=== PATIENT | female | born 1985 | race Caucasian/White ===

== ENCOUNTER 2017-08-01 20:40 | Inpatient (IN) | payer OTHER ==
--- NOTE | 2017-08-01 20:54 | HP ---
COWS - Scale Resting Pulse: 1= [place] 81-100 Sweatin=Flushed/Facial Moisture Restless Observation: 1= Difficult to Sit Still Pupil Size: 1= Pupils >than Normal Bone or Joint Aches: 2= Severe Diffuse Aches Runny Nose/ Eye Tearin= Runny Nose/Eyes GI Upset > 30mins: 2= Nausea/Diarrhea Tremor Observation: 2= Slight Tremor Visible Yawning Observation: 1= 1-2x During Session Anxiety or Irritability: 2=Irritable/Anxious Goose Flesh Skin: 0=Smooth Skin COWS Score: 16 CIWA Score - CIWA Score Nausea/Vomitin Muscle Tremors: 3 Anxiety: 3 Agitation: 2 Paroxysmal Sweats: 2 Orientation: 0-Oriented Tacttile Disturbances: 1-Very Mild Itch/Numbness Auditory Disturbances: 2-Mild Harshness/Frighten Visual Disturbances: 2-Mild Sensitivity Headache: 2-Mild CIWA-Ar Total Score: 20 Admission ROS [facility]HS - HPI Chief Complaint: DEPENDENT ON HEROIN, COCAINE, ETOH, MARIJUANA AND STREET METHADONE Allergies/Adverse Reactions: Allergies Allergy/AdvReac Type Severity Reaction Status Date / Time Penicillins Allergy Verified 06/15/14 02:23 History of Present Illness: THE PT. IS REQUESTING ADMISSION TO THE DETOX AND REHAB. UNITS AND CAME FOR MEDICAL CLEARANCE - Ebola screening Have you traveled outside of the country in the last 21 days: No Have you had contact with anyone from an Ebola affected area: No Have you been sick,other than usual withdrawal symptoms: No Do you have a fever: No - Review of Systems Constitutional: See HPI, Loss of Appetite, Malaise, Weakness, Unintentional Wgt. Loss EENT: reports: See HPI Respiratory: reports: See HPI Cardiac: reports: See HPI, Syncope GI: reports: See HPI, Nausea, Poor Appetite, Vomiting, Abdominal cramping : reports: No Symptoms Reported, See HPI Musculoskeletal: reports: No Symptoms Reported, See HPI, Muscle Pain, Muscle Weakness Integumentary: reports: See HPI, Lesions, Sweating Neuro: reports: See HPI, Headache, Tremors, Weakness Endocrine: reports: See HPI Hematology: reports: See HPI Psychiatric: reports: Judgement Intact, Orientated x3, Anxious, Depressed Patient History - Patient Medical History Hx Anemia: No Hx Asthma: No Hx Chronic Obstructive Pulmonary Disease (COPD): No Hx Cancer: No Hx Cardiac Disorders: No Hx Congestive Heart Failure: No Hx Hypertension: No Hx Hypercholesterolemia: No Hx Pacemaker: No HX Cerebrovascular Accident: No Hx Seizures: Yes (LAST SEIZURE EPISODE IN 05/2017) Hx Dementia: No Hx Diabetes: No Hx Gastrointestinal Disorders: No Hx Liver Disease: No Hx Genitourinary Disorders: No Hx Renal Disease (ESRD): No Hx Thyroid Disease: No Hx Human Immunodeficiency Virus (HIV): No (LAST 05/18) Hx Hepatitis C: Yes Hx Suicide Attempt: No Hx Bipolar Disorder: Yes Hx Schizophrenia: No Other Medical History: ANXIETY AND PTSD DISORDERS - Patient Surgical History Past Surgical History: Yes Other Surgical History: TUBAL LIGATION 2010 - Reproductive History Patient is a Female of Child Bearing Age (11 -55 yrs old): Yes Last Menstrual Period: 07/11/17 Patient : No - Smoking Cessation Smoking history: Current every day smoker Have you smoked in the past 12 months: Yes Aproximately how many cigarettes per day: 20 Cigars Per Day: 0 Hx Chewing Tobacco Use: No Initiated information on smoking cessation: Yes 'Breaking Loose' booklet given: 08/01/17 - Substance & Tx. History Hx Alcohol Use: Yes Hx Substance Use: Yes Substance Use Type: Alcohol, Cocaine, Heroin, Marijuana, Opiates Hx Substance Use Treatment: Yes - Substances Abused Heroin Route: Injection Frequency: Daily Amount used: 10-15 B/D Age of first use: 27 Date of Last Use: 07/31/17 Alcohol Route: Oral Frequency: Daily Amount used: 1-2 P/D Age of first use: 14 Date of Last Use: 07/31/17 Cocaine Route: Smoking Frequency: 3-6 times per week Amount used: 1 GRAM/EACH TIME Age of first use: 15 Date of Last Use: 07/31/17 Marijuana/Hashish Route: Smoking Frequency: 3-6 times per week Amount used: $20/EACH TIME Age of first use: 14 Date of Last Use: 07/31/17 Non-Rx Methadone Route: Oral Frequency: 3-6 times per week Amount used: 60-100/ON ALT. DAY Age of first use: 26 Date of Last Use: 07/30/17 Family Disease History - Family Disease History Family Disease History: Other: Father (ALCOHOL,), Mother (ALCOHOL,MANIC DEPRESSIVE), Sister (DSA) Admission Physical Exam BHS - Physical General Appearance: Yes: No Apparent Distress, Appropriately Dressed, Thin, Tremorous, Sweating, Anxious HEENTM: Yes: Hearing grossly Normal, Normocephalic, Normal Voice, ELIZABETH, Pharynx Normal Respiratory: Yes: Chest Non-Tender, Lungs Clear, Normal Breath Sounds, No Respiratory Distress, No Accessory Muscle Use Neck: Yes: No masses,lesions,Nodules, Supple, Trachea in good position Breast: Yes: Breast Exam Deferred, Axillae without masses Cardiology: Yes: Regular Rhythm, S1, S2, Tachycardia Abdominal: Yes: Normal Bowel Sounds, Non Tender, Flat, Soft Back: Yes: Normal Inspection Musculoskeletal: Yes: full range of Motion, Gait Steady, Pelvis Stable, Muscle Pain, Muscle weakness Extremities: Yes: Normal Capillary Refill, Normal Range of Motion, Non-Tender, Tremors Neurological: Yes: immersion metalcleaner II-XII NML intact, Fully Oriented, Alert, Motor Strength 5/5, Normal Response Integumentary: Yes: Normal Color, Warm, Pale, Moist, Rash, Track Muhammad Lymphatic: Yes: Within Normal Limits - Addiitonal Findings: NEEDLE TRACKS ALL OVER INCLUDING THE NECK++++ - Diagnostic (1) Alcohol dependence Current Visit: Yes Status: Chronic Qualifiers: Substance use status: uncomplicated Qualified Code(s): F10.20 - Alcohol dependence, uncomplicated; F10.20 - Alcohol dependence, uncomplicated; F10.20 - Alcohol dependence, uncomplicated (2) Bipolar disorder Current Visit: Yes Status: Chronic (3) Cocaine dependence Current Visit: Yes Status: Chronic Qualifiers: Substance use status: uncomplicated Qualified Code(s): F14.20 - Cocaine dependence, uncomplicated; F14.20 - Cocaine dependence, uncomplicated; F14.20 - Cocaine dependence, uncomplicated (4) Nicotine dependence Current Visit: Yes Status: Chronic Qualifiers: Nicotine product type: cigarettes Substance use status: uncomplicated Qualified Code(s): F17.210 - Nicotine dependence, cigarettes, uncomplicated; F17.210 - Nicotine dependence, cigarettes, uncomplicated (5) Opioid dependence Current Visit: Yes Status: Chronic Qualifiers: Substance use status: uncomplicated Qualified Code(s): F11.20 - Opioid dependence, uncomplicated; F11.20 - Opioid dependence, uncomplicated; F11.20 - Opioid dependence, uncomplicated (6) Seizure Current Visit: Yes Status: Chronic (7) Weight decreased Current Visit: Yes Status: Chronic (8) Marijuana dependence Current Visit: Yes Status: Chronic (9) Anxiety disorder Current Visit: Yes Status: Chronic Qualifiers: Anxiety disorder type: generalized anxiety disorder Qualified Code(s ): F41.1 - Generalized anxiety disorder; F41.1 - Generalized anxiety disorder; F41.1 - Generalized anxiety disorder (10) PTSD (post-traumatic stress disorder) Current Visit: Yes Status: Chronic Cleared for Admission S - Detox or Rehab [facility] Level of Care: Medically Managed Detox Regimen/Protocol: Methadone/Valium BHS Breath Alcohol Content Breath Alcohol Content: 0
[2017-08-01 21:02] VITALS: BMI 20.2
[2017-08-01] MEDS ORDERED: METHADONE HCL 10 MG TABLET (FOR DETOX USE ONLY) PO ONE ×2 (21:09→23:00)
[2017-08-01] MEDS ORDERED: MAGNESIUM HYDROX 2400MG/30ML ORAL SUSPENSION 30 ML CUP PO PRN (21:09)
[2017-08-01] MEDS ORDERED: MENTHOL/PHENOL 1 EACH UD MM PRN (21:09)
[2017-08-01] MEDS ORDERED: guaiFENesin/D-METHORPHAN HB 10 ML UNIT-DOSE CUPS PO PRN (21:09)
[2017-08-01] MEDS ORDERED: LOPERAMIDE HCL 2 MG CAPSULE PO PRN (21:09)
[2017-08-01] MEDS ORDERED: MAGNESIUM CITRATE 300 ML BOTTLE PO PRN (21:09)
[2017-08-01] MEDS ORDERED: ACETAMINOPHEN 325 MG TABLET (FP) PO PRN (21:09)
[2017-08-01] MEDS ORDERED: diphenhydrAMINE HCL 50 MG CAPSULE PO PRN (21:09)
[2017-08-01] MEDS ORDERED: MAG HYDROX/AL HYDROX/SIMETH 30 ML UNIT-DOSE CUP PO PRN (21:09)
[2017-08-01] MEDS ORDERED: P-EPHED 60MG/TRIPROLIDI 2.5MG TABLET PO PRN (21:09)
[2017-08-01] MEDS ORDERED: diazePAM 5 MG TABLET PO ONE (21:09)
[2017-08-01] MEDS ORDERED: NICOTINE POLACRILEX 4 MG GUM BUC PRN (21:09)
[2017-08-01] MEDS ORDERED: IBUPROFEN 400 MG TABLET (FP) PO PRN (21:09)
[2017-08-01] MEDS: diazePAM 5 MG TABLET PO SCH (22:18)
[2017-08-01] MEDS: THIAMINE HCL 100 MG TABLET (FP) PO SCH (22:22)
[2017-08-01] MEDS: levETIRAcetam 500 MG TABLET (FP) PO ONE ×2 (23:29→23:31)
[2017-08-01] MEDS: levETIRAcetam 500 MG TABLET (FP) PO SCH (23:40)
[2017-08-02 01:12] LABS: URINE APPEARANCE CLEAR; URINE BILIRUBIN NEGATIVE (NEGATIVE); URINE BLOOD NEGATIVE (NEGATIVE); URINE COLOR YELLOW; URINE GLUCOSE (UA) NEGATIVE (NEGATIVE); URINE KETONE NEGATIVE (NEGATIVE); URINE NITRITE NEGATIVE (NEGATIVE); URINE PROTEIN NEGATIVE (NEGATIVE); URINE UROBILINOGEN NEGATIVE mg/dL (0.2-1.0)
[2017-08-02] MEDS: diazePAM 5 MG TABLET PO SCH ×3 (07:15→22:50)
--- NOTE | 2017-08-02 09:13 | EKG ---
Test Reason : Blood Pressure : / mmHG Vent. Rate : 084 BPM Atrial Rate : 084 BPM P-R Int : 150 ms QRS Dur : 064 ms QT Int : 392 ms P-R-T Axes : 028 034 008 degrees QTc Int : 463 ms NORMAL SINUS RHYTHM NONSPECIFIC T WAVE ABNORMALITY ABNORMAL ECG NO PREVIOUS ECGS AVAILABLE Confirmed by CYNDIE WARREN, MELISA ([id number]) on 08/02/2017 9:13:23 AM Referred By: Eun Wild Confirmed By:MELISA AGEE MD
[2017-08-02] MEDS ORDERED: METHADONE HCL 10 MG TABLET (FOR DETOX USE ONLY) PO SCH (10:00)
[2017-08-02] MEDS ORDERED: levETIRAcetam 500 MG TABLET (FP) PO SCH (10:00)
[2017-08-02] MEDS: PRENATAL VITAMINS W/ FOLIC ACID TABLET (FP) PO SCH (10:16)
[2017-08-02] MEDS: diazePAM 5 MG TABLET PO PRN ×2 (10:16→22:10)
[2017-08-02] MEDS: hydrOXYzine PAMOATE 25 MG CAPSULE (FP) PO PRN ×2 (10:16→18:50)
[2017-08-02] MEDS: NICOTINE 21 MG/24 HOURS TOPICAL PATCH TD SCH (10:17)
[2017-08-02] MEDS: BACITRACIN 15 GM TUBE TOPICAL OINTMENT TP SCH ×2 (11:05→22:49)
[2017-08-02] MEDS: SULFAMETHOXAZOLE/TRIMETHOPRIM 800MG/160MG D.S. TABLET PO SCH ×2 (11:05→22:10)
[2017-08-02 11:11] LABS: MCH 30.4 pg (25.7-33.7); MEAN CELL VOLUME 89.5 fl (80-96); MEAN PLT VOLUME 8.8 fl (7.5-11.1); PLATELET COUNT 456 K/MM3 (134-434); WHITE BLOOD COUNT 5.9 K/mm3 (4.0-10.0)
[2017-08-02 11:20] LABS: ANION GAP 7 (8-16); CALCIUM 8.3 mg/dL (8.5-10.1); CO2 26 mmol/L (21-32); GLUCOSE,RANDOM 81 mg/dL (74-106); SGOT/AST 31 U/L (15-37)
[2017-08-02 11:23] LABS: ALK PHOS 55 U/L (45-117); BILIRUBIN,TOTAL 0.2 mg/dL (0.2-1.0); CREATININE 0.6 mg/dL (0.55-1.02); SGPT/ALT 32 U/L (12-78); TOT PROT 6.1 g/dl (6.4-8.2)
--- NOTE | 2017-08-02 11:24 | PN ---
[facility] CIWA - CIWA Score Nausea/Vomitin Muscle Tremors: 3 Anxiety: 3 Agitation: 3 Paroxysmal Sweats: 1-Minimal Palms Moist Orientation: 0-Oriented Tacttile Disturbances: 1-Very Mild Itch/Numbness Auditory Disturbances: 1-Very Mild Visual Disturbances: 0-None Headache: 2-Mild CIWA-Ar Total Score: 17 BHS COWS - Scale Resting Pulse: 1= [place] 81-100 Sweatin= Chills/Flushing Restless Observation: 1= Difficult to Sit Still Pupil Size: 1= Pupils >than Normal Bone or Joint Aches: 2= Severe Diffuse Aches Runny Nose/ Eye Tearin= Runny Nose/Eyes GI Upset > 30mins: 2= Nausea/Diarrhea Tremor Observation of Outstretched Hands: 2= Slight Tremor Visible Yawning Observation: 1= 1-2x During Session Anxiety or Irritability: 2=Irritable/Anxious Goose Flesh Skin: 0=Smooth Skin COWS Score: 15 [facility] Progress Note (SOAP) Subjective: ALERT,IRRITABLE,ANXIOUS,INTERRUPTED SLEEP,PAIN IN THE BODY AND BACK,TREMOR Objective: 08/02/17 11:21 Vital Signs Temperature 98.0 F 08/02/17 10:00 Pulse Rate 87 08/02/17 10:00 Respiratory Rate 18 08/02/17 10:00 Blood Pressure 117/60 08/02/17 10:00 O2 Sat by Pulse Oximetry (%) EKG NSR,INVERTED T IN 3 NO CHEST PAIN,NO SOB,NO DIZZINESS MULTIPLE AREAS OF TRACK CROW BOTH FOREARMS AND LEGS WITH CELLULITIS 08/02/17 11:25 Laboratory Last Values WBC 5.9 K/mm3 (4.0-10.0) 08/02/17 07:30 RBC 3.62 M/mm3 (3.60-5.2) 08/02/17 07:30 Hgb 11.0 GM/dL (10.7-15.3) 08/02/17 07:30 Hct 32.3 % (32.4-45.2) L 08/02/17 07:30 MCV 89.5 fl (80-96) 08/02/17 07:30 MCH 30.4 pg (25.7-33.7) 08/02/17 07:30 MCHC 34.0 g/dl (32.0-36.0) 08/02/17 07:30 RDW 15.0 % (11.6-15.6) 08/02/17 07:30 Plt Count 456 K/MM3 (134-434) H 08/02/17 07:30 MPV 8.8 fl (7.5-11.1) 08/02/17 07:30 Sodium 141 mmol/L (136-145) 08/02/17 07:30 Potassium 4.0 mmol/L (3.5-5.1) 08/02/17 07:30 Chloride 108 mmol/L (98-107) H 08/02/17 07:30 Carbon Dioxide 26 mmol/L (21-32) 08/02/17 07:30 Anion Gap 7 (8-16) L 08/02/17 07:30 BUN 16 mg/dL (7-18) 08/02/17 07:30 Random Glucose 81 mg/dL (74-106) 08/02/17 07:30 Calcium 8.3 mg/dL (8.5-10.1) L 08/02/17 07:30 AST 31 U/L (15-37) 08/02/17 07:30 Albumin 3.0 g/dl (3.4-5.0) L 08/02/17 07:30 Urine Color Yellow 08/02/17 01:00 Urine Appearance Clear 08/02/17 01:00 Urine pH 6.0 (5.0-8.0) 08/02/17 01:00 Urine Protein Negative (NEGATIVE) 08/02/17 01:00 Urine Glucose (UA) Negative (NEGATIVE) 08/02/17 01:00 Urine Ketones Negative (NEGATIVE) 08/02/17 01:00 Urine Blood Negative (NEGATIVE) 08/02/17 01:00 Urine Nitrite Negative (NEGATIVE) 08/02/17 01:00 Urine Bilirubin Negative (NEGATIVE) 08/02/17 01:00 Urine Urobilinogen Negative mg/dL (0.2-1.0) 08/02/17 01:00 LABS PENDING Assessment: 08/02/17 11:24 WITHDRAWAL SYMPTOM 08/02/17 11:26 Plan: CONTINUE DETOX,BACTRIM DS 1 TAB PO BID,BACITRACIN OINTMENT,SEIZURE PRECAUTION
[2017-08-02] MEDS: levETIRAcetam 500 MG TABLET (FP) PO SCH ×2 (11:52→22:10)
[2017-08-02] MEDS ORDERED: PNEUMOC 13-VAL CONJ-DIP CRM/PF 0.5 ML DISP.SYRIN IM ONE (12:00)
[2017-08-02] MEDS ORDERED: FLU VACCINE QUAD 60 MCG/0.5 ML (MDV 17-18) IM ONE (12:00)
[2017-08-02 15:16] LABS: URINE LEUK ESTERASE Negative (NEGATIVE)
[2017-08-02] MEDS: THIAMINE HCL 100 MG TABLET (FP) PO SCH (22:10)
--- NOTE | 2017-08-03 09:37 | PN ---
[facility] COWS - Scale Resting Pulse: 1= [place] 81-100 Sweatin= Chills/Flushing Restless Observation: 3= Extraneous Movement Pupil Size: 1= Pupils >than Normal Bone or Joint Aches: 2= Severe Diffuse Aches Runny Nose/ Eye Tearin= Runny Nose/Eyes GI Upset > 30mins: 3= Vomiting/Diarrhea Tremor Observation of Outstretched Hands: 2= Slight Tremor Visible Yawning Observation: 1= 1-2x During Session Anxiety or Irritability: 2=Irritable/Anxious Goose Flesh Skin: 0=Smooth Skin COWS Score: 18 [facility] Progress Note (SOAP) Subjective: ALERT,IRRITABLE,ANXIOUS,INTERRUPTED SLEEP,TREMOR,PAIN IN THE BODY AND BACK Objective: 08/03/17 09:35 Vital Signs Temperature 98.1 F 08/03/17 06:10 Pulse Rate 84 08/03/17 06:10 Respiratory Rate 20 08/03/17 06:10 Blood Pressure 101/51 08/03/17 06:10 O2 Sat by Pulse Oximetry (%) Laboratory Last Values WBC 5.9 K/mm3 (4.0-10.0) 08/02/17 07:30 RBC 3.62 M/mm3 (3.60-5.2) 08/02/17 07:30 Hgb 11.0 GM/dL (10.7-15.3) 08/02/17 07:30 Hct 32.3 % (32.4-45.2) L 08/02/17 07:30 MCV 89.5 fl (80-96) 08/02/17 07:30 MCH 30.4 pg (25.7-33.7) 08/02/17 07:30 MCHC 34.0 g/dl (32.0-36.0) 08/02/17 07:30 RDW 15.0 % (11.6-15.6) 08/02/17 07:30 Plt Count 456 K/MM3 (134-434) H 08/02/17 07:30 MPV 8.8 fl (7.5-11.1) 08/02/17 07:30 Sodium 141 mmol/L (136-145) 08/02/17 07:30 Potassium 4.0 mmol/L (3.5-5.1) 08/02/17 07:30 Chloride 108 mmol/L (98-107) H 08/02/17 07:30 Carbon Dioxide 26 mmol/L (21-32) 08/02/17 07:30 Anion Gap 7 (8-16) L 08/02/17 07:30 BUN 16 mg/dL (7-18) 08/02/17 07:30 Creatinine 0.6 mg/dL (0.55-1.02) 08/02/17 07:30 Creat Clearance w eGFR > 60 (>60) 08/02/17 07:30 Random Glucose 81 mg/dL (74-106) 08/02/17 07:30 Calcium 8.3 mg/dL (8.5-10.1) L 08/02/17 07:30 Total Bilirubin 0.2 mg/dL (0.2-1.0) 08/02/17 07:30 AST 31 U/L (15-37) 08/02/17 07:30 ALT 32 U/L (12-78) 08/02/17 07:30 Alkaline Phosphatase 55 U/L (45-117) 08/02/17 07:30 Total Protein 6.1 g/dl (6.4-8.2) L 08/02/17 07:30 Albumin 3.0 g/dl (3.4-5.0) L 08/02/17 07:30 Urine Color Yellow 08/02/17 01:00 Urine Appearance Clear 08/02/17 01:00 Urine pH 6.0 (5.0-8.0) 08/02/17 01:00 Ur Specific [place] 1.025 (1.005-1.025) 08/02/17 01:00 Urine Protein Negative (NEGATIVE) 08/02/17 01:00 Urine Glucose (UA) Negative (NEGATIVE) 08/02/17 01:00 Urine Ketones Negative (NEGATIVE) 08/02/17 01:00 Urine Blood Negative (NEGATIVE) 08/02/17 01:00 Urine Nitrite Negative (NEGATIVE) 08/02/17 01:00 Urine Bilirubin Negative (NEGATIVE) 08/02/17 01:00 Urine Urobilinogen Negative mg/dL (0.2-1.0) 08/02/17 01:00 Ur Leukocyte Esterase Negative (NEGATIVE) 08/02/17 01:00 RPR Titer Nonreactive (NONREACTIVE) 08/02/17 07:30 Assessment: 08/03/17 09:36 WITHDRAWAL SYMPTOM Plan: CONTINUE DETOX
[2017-08-03] MEDS: BACITRACIN 15 GM TUBE TOPICAL OINTMENT TP SCH ×2 (10:14→22:15)
[2017-08-03] MEDS: SULFAMETHOXAZOLE/TRIMETHOPRIM 800MG/160MG D.S. TABLET PO SCH ×2 (10:18→22:15)
[2017-08-03] MEDS: METHADONE HCL 5 MG TABLET (FOR DETOX USE ONLY) PO SCH (10:18)
[2017-08-03] MEDS: diazePAM 5 MG TABLET PO SCH ×2 (10:18→22:15)
[2017-08-03] MEDS: levETIRAcetam 500 MG TABLET (FP) PO SCH ×2 (10:18→22:15)
[2017-08-03] MEDS: PRENATAL VITAMINS W/ FOLIC ACID TABLET (FP) PO SCH (10:18)
[2017-08-03] MEDS ORDERED: BACITRACIN 0.9 GM PACKET ONE (10:18)
[2017-08-03] MEDS: NICOTINE 21 MG/24 HOURS TOPICAL PATCH TD SCH (10:19)
--- NOTE | 2017-08-03 10:53 | CONSULT ---
[facility] Psychiatric Consult - Data Date of interview: 08/03/17 Admission source: [facility] Identifying data: This is 31 years old female with history of Bipolar disoprder , PTSD, with no history of psychiatric hospitalizations, intoxicated with: Alcohol, Cocaine, Nicotine, Cannabis, Methadone and Xanax Substance Abuse History: - Smoking Cessation. Smoking history: Current every day smoker. Have you smoked in the past 12 months: Yes. Aproximately how many cigarettes per day: 20. Cigars Per Day: 0. Hx Chewing Tobacco Use: No. Initiated information on smoking cessation: Yes. 'Breaking Loose' booklet given : 08/01/17. - Substance & Tx. History. Hx Alcohol Use: Yes. Hx Substance Use : Yes. Substance Use Type: Alcohol, Cocaine, Heroin, Marijuana, Opiates. Hx Substance Use Treatment: Yes. - Substances Abused. Heroin. Route: Injection. Frequency: Daily. Amount used: 10-15 B/D. Age of first use: 27. Date of Last Use: 07/31/17. Alcohol. Route: Oral. Frequency: Daily. Amount used: 1-2 P/D. Age of first use: 14. Date of Last Use: 07/31/17. Cocaine. Route: Smoking. Frequency: 3-6 times per week. Amount used: 1 GRAM/ EACH TIME. Age of first use: 15. Date of Last Use: 07/31/17. Marijuana/ Hashish. Route: Smoking. Frequency: 3-6 times per week. Amount used: $20/ EACH TIME. Age of first use: 14. Date of Last Use: 07/31/17. Non-Rx Methadone. Route: Oral. Frequency: 3-6 times per week. Amount used: 60-100/ ON ALT. DAY. Age of first use: 26. Date of Last Use: 07/30/17 Medical History: Weight loss, Syncope Psychiatric History: Patioent reports history of Bipolar disorder, reports taking prior to admission: Seroquel 300mg po bid. Trazodone 150mg po qhs. Patoient insisit on starting immedicately Seroquel 600mg po bid, reports never been oversedated prior and reports taking this amount for a long time ago. Physical/Sexual Abuse/Trauma History: Denies Additional Comment: Seroquel 300mg po bid. Trazodone 150mg po qhs Mental Status Exam - Mental Status Exam Alert and Oriented to: Person Cognitive Function: Fair Patient Appearance: Unkempt Mood: Anxious Affect: Mood Congruent Patient Behavior: Guarded, Cooperative Speech Pattern: Appropriate Voice Loudness: Mildly Soft/Quiet Thought Process: Goal Oriented Thought Disorder: Being Controlled Hallucinations: Denies Suicidal Ideation: Denies Homicidal Ideation: Denies Insight/Judgement: Fair Sleep: Difficulty falling asleep Appetite: Weight loss Muscle strength/Tone: Normal Gait/Station: Normal Additional Comments: Seroquel 300mg po bid. Trazodone 150mg po qhs Psychiatric Findings - Problem List ([place] 1, 2,3) (1) Alcohol dependence Current Visit: Yes Status: Chronic Qualifiers: Substance use status: uncomplicated Qualified Code(s): F10.20 - Alcohol dependence, uncomplicated; F10.20 - Alcohol dependence, uncomplicated; F10.20 - Alcohol dependence, uncomplicated (2) Bipolar disorder Current Visit: Yes Status: Chronic (3) Cocaine dependence Current Visit: Yes Status: Chronic Qualifiers: Substance use status: uncomplicated Qualified Code(s): F14.20 - Cocaine dependence, uncomplicated; F14.20 - Cocaine dependence, uncomplicated; F14.20 - Cocaine dependence, uncomplicated (4) Marijuana dependence Current Visit: Yes Status: Chronic (5) Nicotine dependence Current Visit: Yes Status: Chronic Qualifiers: Nicotine product type: cigarettes Substance use status: uncomplicated Qualified Code(s): F17.210 - Nicotine dependence, cigarettes, uncomplicated; F17.210 - Nicotine dependence, cigarettes, uncomplicated (6) Opioid dependence Current Visit: Yes Status: Chronic Qualifiers: Substance use status: uncomplicated Qualified Code(s): F11.20 - Opioid dependence, uncomplicated; F11.20 - Opioid dependence, uncomplicated; F11.20 - Opioid dependence, uncomplicated (7) PTSD (post-traumatic stress disorder) Current Visit: Yes Status: Chronic (8) Weight decreased Current Visit: Yes Status: Chronic (9) Benzodiazepine dependence Current Visit: No Status: Acute - Initial Treatment Plan Initial Treatment Plan: Seroquel 300mg po bid. Trazodone 150mg po qhs
[2017-08-03] MEDS: QUEtiapine FUMARATE 300 MG TABLET PO SCH ×2 (13:21→22:15)
[2017-08-03] MEDS: THIAMINE HCL 100 MG TABLET (FP) PO SCH (22:15)
[2017-08-03] MEDS: traZODone HCL 50 MG TABLET (FP) PO SCH (22:15)
[2017-08-04] MEDS ORDERED: BACITRACIN 0.9 GM PACKET ONE (09:11)
--- NOTE | 2017-08-04 09:19 | PN ---
[facility] Progress Note (SOAP) Subjective: ALERT,IRRITABLE,ANXIOUS,INTERRUPTED SLEEP,PAIN IN THE BODY Objective: 08/04/17 09:19 Vital Signs Temperature 99.1 F 08/04/17 06:00 Pulse Rate 91 H 08/04/17 06:00 Respiratory Rate 18 08/04/17 06:00 Blood Pressure 103/55 08/04/17 06:00 O2 Sat by Pulse Oximetry (%) Assessment: 08/04/17 09:19 WITHDRAWAL SYMPTOM Plan: CONTINUE DETOX
[2017-08-04] MEDS: QUEtiapine FUMARATE 300 MG TABLET PO SCH ×2 (10:18→22:14)
[2017-08-04] MEDS: diazePAM 5 MG TABLET PO SCH ×2 (10:18→22:16)
[2017-08-04] MEDS: PRENATAL VITAMINS W/ FOLIC ACID TABLET (FP) PO SCH (10:19)
[2017-08-04] MEDS: levETIRAcetam 500 MG TABLET (FP) PO SCH ×2 (10:20→22:14)
[2017-08-04] MEDS: BACITRACIN 15 GM TUBE TOPICAL OINTMENT TP SCH ×2 (10:20→22:31)
[2017-08-04] MEDS: SULFAMETHOXAZOLE/TRIMETHOPRIM 800MG/160MG D.S. TABLET PO SCH ×2 (10:20→22:14)
[2017-08-04] MEDS: METHADONE HCL 5 MG TABLET (FOR DETOX USE ONLY) PO SCH (10:20)
[2017-08-04] MEDS: NICOTINE 21 MG/24 HOURS TOPICAL PATCH TD SCH (10:23)
[2017-08-04] MEDS: traZODone HCL 50 MG TABLET (FP) PO SCH (22:13)
[2017-08-04] MEDS: THIAMINE HCL 100 MG TABLET (FP) PO SCH (22:14)
--- NOTE | 2017-08-05 08:55 | PN ---
[facility] Progress Note (SOAP) Subjective: nausea, sweats, interrupted sleep,anxiety, tremors Objective: 08/05/17 08:54 Vital Signs - 8 hr 08/05/17 08/05/17 03:30 06:00 Temperature 96.4 F L Pulse Rate 110 H Respiratory 18 16 Rate Blood Pressure 112/69 Laboratory Tests 08/02/17 08/02/17 08/02/17 01:00 07:30 07:30 WBC 5.9 RBC 3.62 Hgb 11.0 Hct 32.3 L MCV 89.5 MCH 30.4 MCHC 34.0 RDW 15.0 Plt Count 456 H MPV 8.8 Sodium 141 Potassium 4.0 Chloride 108 H Carbon Dioxide 26 Anion Gap 7 L BUN 16 Creatinine 0.6 Creat Clearance w eGFR > 60 Random Glucose 81 Calcium 8.3 L Total Bilirubin 0.2 AST 31 ALT 32 Alkaline Phosphatase 55 Total Protein 6.1 L Albumin 3.0 L Urine Color Yellow Urine Appearance Clear Urine pH 6.0 Ur Specific [place] 1.025 Urine Protein Negative Urine Glucose (UA) Negative Urine Ketones Negative Urine Blood Negative Urine Nitrite Negative Urine Bilirubin Negative Urine Urobilinogen Negative Ur Leukocyte Esterase Negative RPR Titer 08/02/17 07:30 WBC RBC Hgb Hct MCV MCH MCHC RDW Plt Count MPV Sodium Potassium Chloride Carbon Dioxide Anion Gap BUN Creatinine Creat Clearance w eGFR Random Glucose Calcium Total Bilirubin AST ALT Alkaline Phosphatase Total Protein Albumin Urine Color Urine Appearance Urine pH Ur Specific [place] Urine Protein Urine Glucose (UA) Urine Ketones Urine Blood Urine Nitrite Urine Bilirubin Urine Urobilinogen Ur Leukocyte Esterase RPR Titer Nonreactive Assessment: 08/05/17 08:55 hypoalbuminemia, malnutrition 2/2 substance use/liver disease, tachycardai withdrawal sx Plan: cont detox, clonidine
[2017-08-05] MEDS ORDERED: diazePAM 5 MG TABLET PO SCH (10:00)
[2017-08-05] MEDS ORDERED: METHADONE HCL 10 MG TABLET (FOR DETOX USE ONLY) PO SCH (10:00)
[2017-08-05] MEDS: BACITRACIN 15 GM TUBE TOPICAL OINTMENT TP SCH ×2 (10:07→22:06)
[2017-08-05] MEDS: cloNIDine HCL 0.1 MG TABLET PO SCH ×2 (10:08→22:06)
[2017-08-05] MEDS: SULFAMETHOXAZOLE/TRIMETHOPRIM 800MG/160MG D.S. TABLET PO SCH ×2 (10:08→22:06)
[2017-08-05] MEDS: NICOTINE 21 MG/24 HOURS TOPICAL PATCH TD SCH (10:08)
[2017-08-05] MEDS: PRENATAL VITAMINS W/ FOLIC ACID TABLET (FP) PO SCH (10:09)
[2017-08-05] MEDS: QUEtiapine FUMARATE 300 MG TABLET PO SCH ×2 (10:09→22:05)
[2017-08-05] MEDS: levETIRAcetam 500 MG TABLET (FP) PO SCH ×2 (10:09→22:05)
[2017-08-05] MEDS: THIAMINE HCL 100 MG TABLET (FP) PO SCH (22:05)
[2017-08-05] MEDS: traZODone HCL 50 MG TABLET (FP) PO SCH (22:05)
[2017-08-06] MEDS ORDERED: METHADONE HCL 5 MG TABLET (FOR DETOX USE ONLY) PO SCH (06:00)
[2017-08-06 06:34] VITALS: BP 104/50; PULSE 93; TEMP 97.7
--- NOTE | 2017-08-06 08:14 | PN ---
S Progress Note (SOAP) Subjective: alert,no complaint Objective: 08/06/17 08:12 Vital Signs Temperature 97.7 F 08/06/17 06:33 Pulse Rate 93 H 08/06/17 06:33 Respiratory Rate 20 08/06/17 06:33 Blood Pressure 104/50 08/06/17 06:33 O2 Sat by Pulse Oximetry (%) detox completed,no withdrawal symptom Assessment: 08/06/17 08:13 no withdrawal symptom Plan: discharge today,follow up with after care program as arrangement
--- NOTE | 2017-08-06 08:16 | DS ---
[facility] Detox Discharge Summary Admission Date: 08/01/17 Discharge Date: 08/06/17 - History Present History: Alcohol Dependence, Cannabis Dependence, Cocaine Dependence, Opioid Dependence Additional Comments: follow up with after care program as arrangement Pertinent Past History: nicotine dependence seizure anxiety and depression ptsd - Physical Exam Results Vital Signs: Vital Signs Temperature 97.7 F 08/06/17 06:33 Pulse Rate 93 H 08/06/17 06:33 Respiratory Rate 20 08/06/17 06:33 Blood Pressure 104/50 08/06/17 06:33 O2 Sat by Pulse Oximetry (%) Pertinent Admission Physical Exam Findings: withdrawal symptom - Treatment Hospital Course: Detox Protocol Followed, Detoxed Safely, Responded well, Discharged Condition Good, Rehab Referral Accepted Patient has Accepted [facility] Referral [facility] - Medication Discharge Medications: Ambulatory Orders Quetiapine Fumarate [Seroquel -] 300 mg PO BID 08/01/17 Trazodone HCl [Desyrel -] 150 mg PO HS 08/01/17 Quetiapine Fumarate [Seroquel -] 300 mg PO BID #60 tab 08/03/17 Trazodone HCl [Desyrel -] 150 mg PO HS #30 tablet 08/03/17 Hydroxyzine Pamoate [Vistaril -] 25 mg PO Q4H PRN #20 cap 08/05/17 Levetiracetam [Keppra -] 500 mg PO BID #60 tab 08/05/17 Sulfamethoxazole/Trimethoprim [Bactrim DS -] 1 each PO BID #14 tablet 08/05/17 - Diagnosis (1) Opioid dependence with withdrawal Current Visit: Yes Status: Acute (2) Opioid dependence Current Visit: Yes Status: Chronic Qualifiers: Substance use status: uncomplicated Qualified Code(s): F11.20 - Opioid dependence, uncomplicated; F11.20 - Opioid dependence, uncomplicated; F11.20 - Opioid dependence, uncomplicated (3) Cocaine dependence Current Visit: Yes Status: Chronic Qualifiers: Substance use status: uncomplicated Qualified Code(s): F14.20 - Cocaine dependence, uncomplicated; F14.20 - Cocaine dependence, uncomplicated; F14.20 - Cocaine dependence, uncomplicated (4) Marijuana dependence Current Visit: Yes Status: Chronic (5) Weight decreased Current Visit: Yes Status: Chronic (6) Alcohol dependence with uncomplicated withdrawal Current Visit: Yes Status: Acute (7) Seizure Current Visit: Yes Status: Chronic (8) Syncope Current Visit: No Status: Acute (9) Cellulitis and abscess of leg Current Visit: Yes Status: Acute - AMA Did Patient Leave Against Medical Advice: No
[2017-08-06] MEDS: levETIRAcetam 500 MG TABLET (FP) PO SCH (09:07)
[2017-08-06] MEDS: PRENATAL VITAMINS W/ FOLIC ACID TABLET (FP) PO SCH (09:07)
[2017-08-06] MEDS: SULFAMETHOXAZOLE/TRIMETHOPRIM 800MG/160MG D.S. TABLET PO SCH (09:07)
[2017-08-06] MEDS: QUEtiapine FUMARATE 300 MG TABLET PO SCH (09:09)
== END 2017-08-06 09:13 | disposition home or self-care (01) | DRG 773 ==
LOC: YASAS 20:40 → Y6N 20:58
PROVIDERS: ADMIT Internal Medicine; ATTEND Internal Medicine
PROC: HZ2ZZZZ Detoxification Services for Substance Abuse Treatment (ICD-10-PCS; principal; 2017-08-01)
DX: F11.23 Opioid dependence with withdrawal (principal); F10.230 Alcohol dependence with withdrawal, uncomplicated; F14.20 Cocaine dependence, uncomplicated; F12.20 Cannabis dependence, uncomplicated; F41.8 Other specified anxiety disorders; F31.9 Bipolar disorder, unspecified; G40.909 Epilepsy, unspecified, not intractable, without status epilepticus; L03.119 Cellulitis of unspecified part of limb; R63.4 Abnormal weight loss; Z68.20 Body mass index [BMI] 20.0-20.9, adult
CPT/HCPCS: 36415; 80053; 81003; 85027; 86593; 90670; 90688; 93005; 93010; G0008; G0009

== ENCOUNTER 2017-08-26 15:53 | Inpatient (IN) | payer OTHER ==
[2017-08-26 16:16] VITALS: BMI 21.4
--- NOTE | 2017-08-26 19:39 | HP ---
COWS - Scale Resting Pulse: 1= [place] 81-100 Sweatin= Chills/Flushing Restless Observation: 3= Extraneous Movement Pupil Size: 0= Normal to Room Light Bone or Joint Aches: 2= Severe Diffuse Aches Runny Nose/ Eye Tearin= Runny Nose/Eyes GI Upset > 30mins: 1= Stomach Cramp Tremor Observation: 2= Slight Tremor Visible Yawning Observation: 0= None Anxiety or Irritability: 2=Irritable/Anxious Goose Flesh Skin: 0=Smooth Skin COWS Score: 14 CIWA Score - CIWA Score Nausea/Vomitin-No Nausea/No Vomiting Muscle Tremors: 4-Moderate,w/Arms Extend Anxiety: 4-Mod. Anxious/Guarded Agitation: 4-Moderately Restless Paroxysmal Sweats: 1-Minimal Palms Moist Orientation: 0-Oriented Tacttile Disturbances: 0-None Auditory Disturbances: 0-None Visual Disturbances: 0-None Headache: 1-Very Mild CIWA-Ar Total Score: 14 Admission ROS S - HPI Chief Complaint: withdrawal sx Allergies/Adverse Reactions: Allergies Allergy/AdvReac Type Severity Reaction Status Date / Time Penicillins Allergy Verified 06/15/14 02:23 History of Present Illness: 31 years old female with long history of alcohol heroin nicotine dependence has seizure and anxiety depression is admitted to detox Exam Limitations: No Limitations - Ebola screening Have you traveled outside of the country in the last 21 days: No Have you had contact with anyone from an Ebola affected area: No Have you been sick,other than usual withdrawal symptoms: No Do you have a fever: No - Review of Systems Constitutional: Changes in sleep, Weight Stable EENT: reports: No Symptoms Reported Respiratory: reports: SOB with Exertion, Productive cough (brownish) Cardiac: reports: No Symptoms Reported GI: reports: Poor Fluid Intake, Indigestion, Abdominal cramping : reports: No Symptoms Reported Musculoskeletal: reports: Back Pain, Joint Pain, Muscle Pain, Neck Pain Integumentary: reports: Change in Color (multiple skin abrasion arms + legs face ) Neuro: reports: Seizure (since ), Tremors Endocrine: reports: No Symptoms Reported Hematology: reports: No Symptoms Reported Psychiatric: reports: Judgement Intact, Orientated x3, Anxious, Depressed Other Systems: Reviewed and Negative Patient History - Patient Medical History Hx Anemia: No Hx Asthma: No Hx Chronic Obstructive Pulmonary Disease (COPD): No Hx Cancer: No Hx Cardiac Disorders: No Hx Congestive Heart Failure: No Hx Hypertension: No Hx Hypercholesterolemia: No Hx Pacemaker: No HX Cerebrovascular Accident: No Hx Seizures: Yes Hx Dementia: No Hx Diabetes: No Hx Gastrointestinal Disorders: No Hx Liver Disease: No Hx Genitourinary Disorders: No Hx Sexually Transmitted Disorders: No Hx Renal Disease (ESRD): No Hx Thyroid Disease: No Hx Human Immunodeficiency Virus (HIV): No (LAST 05/18) Hx Hepatitis C: Yes Hx Depression: No Hx Suicide Attempt: No Hx Bipolar Disorder: Yes Hx Schizophrenia: No - Patient Surgical History Past Surgical History: Yes Hx Neurologic Surgery: No Hx Cataract Extraction: No Hx Cardiac Surgery: No Hx Lung Surgery: No Hx Breast Surgery: No Hx Breast Biopsy: No Hx Abdominal Surgery: No Hx Appendectomy: No Hx Cholecystectomy: No Hx Genitourinary Surgery: No Hx Section: No Hx Orthopedic Surgery: No Hx Hysterectomy: No Other Surgical History: TUBAL LIGATION 2010 Anesthesia Reaction: No - PPD History Previous Implant?: Yes Documented Results: Negative w/proof Implanted On Prior [facility] Admission?: Yes Date: 08/03/17 PPD to be Administered?: No - Reproductive History Patient is a Female of Child Bearing Age (11 -55 yrs old): Yes Last Menstrual Period: 08/12/17 Patient : No - Smoking Cessation Smoking history: Current every day smoker Have you smoked in the past 12 months: Yes Aproximately how many cigarettes per day: 20 Cigars Per Day: 0 Hx Chewing Tobacco Use: No Initiated information on smoking cessation: Yes 'Breaking Loose' booklet given: 08/26/17 - Substance & Tx. History Hx Alcohol Use: Yes Hx Substance Use: Yes Substance Use Type: Cocaine, Heroin Hx Substance Use Treatment: Yes (08/2017 [facility]) - Substances Abused Heroin Route: Injection Frequency: Daily Amount used: 10-15 bags Age of first use: 24 Date of Last Use: 08/25/17 Cocaine Route: Smoking Frequency: 3-6 times per week Amount used: $50 Age of first use: 15 Date of Last Use: 08/25/17 ETOH Route: Oral Frequency: 3-6 times per week Amount used: 1 pt vodka Age of first use: 13 Date of Last Use: 08/25/17 Family Disease History - Family Disease History Family Disease History: Other: Father (ALCOHOL,), Mother (ALCOHOL,MANIC DEPRESSIVE), Sister (DSA) Admission Physical Exam S - Vital Signs Vital Signs: Vital Signs - 24 hr 08/26/17 16:11 Temperature 98 F Pulse Rate 100 H Respiratory 18 Rate Blood Pressure 127/77 - Physical General Appearance: Yes: Appropriately Dressed, Mild Distress, Thin, Tremorous, Irritable, Sweating, Anxious HEENTM: Yes: Hearing grossly Normal, Normal ENT Inspection, Normocephalic, Normal Voice Respiratory: Yes: Chest Non-Tender, No Respiratory Distress, No Accessory Muscle Use, Rhonchi, Hyperresonant, Inspiration Neck: Yes: Supple, Trachea in good position Breast: Yes: Breasts Symetrical Cardiology: Yes: Regular Rhythm, S1, S2, Tachycardia Abdominal: Yes: Non Tender, Soft, Increased Bowel Sounds Genitourinary: Yes: Within Normal Limits Back: Yes: Normal Inspection Musculoskeletal: Yes: full range of Motion, Gait Steady, Back pain, Muscle Pain Extremities: Yes: Normal Range of Motion, Non-Tender, Tremors Neurological: Yes: Fully Oriented, Alert, Motor Strength 5/5, Normal Response, Depressed Affect Integumentary: Yes: Warm, Erythema, Other (multiple skin abrasion) Lymphatic: Yes: Within Normal Limits - Diagnostic (1) GERD (gastroesophageal reflux disease) Current Visit: Yes Status: Chronic Qualifiers: Esophagitis presence: without esophagitis Qualified Code(s): K21.9 - Gastro -esophageal reflux disease without esophagitis (2) COPD (chronic obstructive pulmonary disease) Current Visit: Yes Status: Chronic Qualifiers: COPD type: emphysema Emphysema type: panlobular Qualified Code(s): J43.1 - Panlobular emphysema (3) Bipolar II disorder Current Visit: Yes Status: Suspected (4) Hepatitis C Current Visit: Yes Status: Chronic Qualifiers: Viral hepatitis chronicity: unspecified Hepatic coma status: without hepatic coma Qualified Code(s): B19.20 - Unspecified viral hepatitis C without hepatic coma Comment: [place]el to treat (5) Skin abrasion Current Visit: Yes Status: Chronic (6) Alcohol dependence with uncomplicated withdrawal Current Visit: Yes Status: Acute (7) Anxiety and depression Current Visit: Yes Status: Suspected (8) Opioid dependence with withdrawal Current Visit: Yes Status: Acute (9) Nicotine dependence Current Visit: Yes Status: Acute Qualifiers: Nicotine product type: cigarettes Substance use status: in withdrawal Qualified Code(s): F17.213 - Nicotine dependence, cigarettes, with withdrawal (10) Seizure Current Visit: Yes Status: Chronic Qualifiers: Convulsion type: simple febrile Qualified Code(s): R56.00 - Simple febrile convulsions (11) Weight decreased Current Visit: Yes Status: Acute Cleared for Admission S - Detox or Rehab [facility] Level of Care: Medically Managed Detox Regimen/Protocol: Methadone/Librium S Breath Alcohol Content Breath Alcohol Content: 0 Urine Pregancy Test - Result Urine Test Results: Negative- NO Line Present Urine Drug Screen - Results Drug Screen Negative: No Urine Drug Screen Results: RITO-Cocaine, OPI-Opiates, MTD-Methadone
[2017-08-26] MEDS ORDERED: NICOTINE POLACRILEX 4 MG GUM BC PRN (19:43)
[2017-08-26] MEDS ORDERED: ACETAMINOPHEN 325 MG TABLET (FP) PO PRN (19:43)
[2017-08-26] MEDS ORDERED: MAGNESIUM HYDROX 2400MG/30ML ORAL SUSPENSION 30 ML CUP PO PRN (19:43)
[2017-08-26] MEDS ORDERED: P-EPHED 60MG/TRIPROLIDI 2.5MG TABLET PO PRN (19:43)
[2017-08-26] MEDS ORDERED: MAG HYDROX/AL HYDROX/SIMETH 30 ML UNIT-DOSE CUP PO PRN (19:43)
[2017-08-26] MEDS ORDERED: LOPERAMIDE HCL 2 MG CAPSULE PO PRN (19:43)
[2017-08-26] MEDS ORDERED: guaiFENesin/D-METHORPHAN HB 10 ML UNIT-DOSE CUPS PO PRN (19:43)
[2017-08-26] MEDS ORDERED: MAGNESIUM CITRATE 300 ML BOTTLE PO PRN (19:43)
[2017-08-26] MEDS ORDERED: diazePAM 5 MG TABLET PO PRN ×2 (19:43→19:54)
[2017-08-26] MEDS ORDERED: diazePAM 5 MG TABLET PO ONE (19:43)
[2017-08-26] MEDS ORDERED: MENTHOL/PHENOL 1 EACH UD MM PRN (19:43)
[2017-08-26] MEDS ORDERED: ALBUTEROL SO4 18 GM HFA INHALER IH PRN (19:46)
[2017-08-26] MEDS ORDERED: METHADONE HCL 10 MG TABLET (FOR DETOX USE ONLY) PO ONE ×2 (19:54→23:00)
[2017-08-26] MEDS: SULFAMETHOXAZOLE/TRIMETHOPRIM 800MG/160MG D.S. TABLET PO SCH ×2 (20:19→22:31)
[2017-08-26] MEDS: RANITIDINE HCL 150 MG TABLET (FP) PO SCH ×2 (20:19→22:32)
[2017-08-26] MEDS: TRIAMCINOLONE ACET 0.1% OINT 15 GM TUBE TP SCH ×2 (21:16→22:31)
[2017-08-26] MEDS ORDERED: THIAMINE HCL 100 MG TABLET (FP) PO SCH (22:00)
[2017-08-26] MEDS: levETIRAcetam 500 MG TABLET (FP) PO SCH (22:30)
[2017-08-26] MEDS: diazePAM 5 MG TABLET PO SCH (22:31)
[2017-08-27 02:25] LABS: URINE APPEARANCE CLEAR; URINE BILIRUBIN NEGATIVE (NEGATIVE); URINE BLOOD NEGATIVE (NEGATIVE); URINE COLOR YELLOW; URINE GLUCOSE (UA) NEGATIVE (NEGATIVE); URINE KETONE NEGATIVE (NEGATIVE); URINE NITRITE NEGATIVE (NEGATIVE); URINE PROTEIN NEGATIVE (NEGATIVE); URINE UROBILINOGEN 0.2 mg/dL (0.2-1.0)
[2017-08-27] MEDS: diazePAM 5 MG TABLET PO SCH ×2 (05:51→14:34)
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
[2017-08-27] MEDS ORDERED: NICOTINE 21 MG/24 HOURS TOPICAL PATCH TD SCH (10:00)
[2017-08-27] MEDS ORDERED: METHADONE HCL 10 MG TABLET (FOR DETOX USE ONLY) PO ONE (10:00)
[2017-08-27] MEDS ORDERED: PRENATAL VITAMINS W/ FOLIC ACID TABLET (FP) PO SCH (10:00)
[2017-08-27 10:10] LABS: MCH 30.5 pg (25.7-33.7); MEAN CELL VOLUME 92.3 fl (80-96); MEAN PLT VOLUME 8.6 fl (7.5-11.1); PLATELET COUNT 541 K/MM3 (134-434); RDW 14.9 % (11.6-15.6); WHITE BLOOD COUNT 8.4 K/mm3 (4.0-10.0)
[2017-08-27] MEDS: SULFAMETHOXAZOLE/TRIMETHOPRIM 800MG/160MG D.S. TABLET PO SCH (10:26)
[2017-08-27] MEDS: RANITIDINE HCL 150 MG TABLET (FP) PO SCH (10:27)
[2017-08-27] MEDS: levETIRAcetam 500 MG TABLET (FP) PO SCH (10:27)
[2017-08-27] MEDS: TRIAMCINOLONE ACET 0.1% OINT 15 GM TUBE TP SCH ×2 (10:27→14:34)
[2017-08-27] MEDS ORDERED: traZODone HCL 100 MG TABLET (FP) PO SCH (10:30)
[2017-08-27] MEDS ORDERED: QUEtiapine FUMARATE 300 MG TABLET PO SCH (10:30)
[2017-08-27 10:52] LABS: ALBUMIN 3.7 g/dl (3.4-5.0); ALK PHOS 76 U/L (45-117); ANION GAP 8 (8-16); BILIRUBIN,TOTAL 0.6 mg/dL (0.2-1.0); CO2 26 mmol/L (21-32); CREATININE 0.9 mg/dL (0.55-1.02); GLUCOSE,RANDOM 102 mg/dL (74-106); SGOT/AST 35 U/L (15-37); SGPT/ALT 61 U/L (12-78); TOT PROT 6.9 g/dl (6.4-8.2)
[2017-08-27 11:34] LABS: URINE LEUK ESTERASE Negative (NEGATIVE)
--- NOTE | 2017-08-27 12:46 | PN ---
[facility] CIWA - CIWA Score Nausea/Vomitin-No Nausea/No Vomiting Muscle Tremors: 4-Moderate,w/Arms Extend Anxiety: 4-Mod. Anxious/Guarded Agitation: 4-Moderately Restless Paroxysmal Sweats: 3 Orientation: 0-Oriented Tacttile Disturbances: 0-None Auditory Disturbances: 0-None Visual Disturbances: 0-None Headache: 0-None Present CIWA-Ar Total Score: 15 [facility] COWS - Scale Resting Pulse: 2= [place] 101-120 Sweatin=Flushed/Facial Moisture Restless Observation: 1= Difficult to Sit Still Pupil Size: 0= Normal to Room Light Bone or Joint Aches: 2= Severe Diffuse Aches Runny Nose/ Eye Tearin= Runny Nose/Eyes GI Upset > 30mins: 1= Stomach Cramp Tremor Observation of Outstretched Hands: 2= Slight Tremor Visible Yawning Observation: 2= >3x During Session Anxiety or Irritability: 2=Irritable/Anxious Goose Flesh Skin: 0=Smooth Skin COWS Score: 16 S Progress Note (SOAP) Subjective: hot and sweats chills body aches restless interrupted sleep agitation Objective: 08/27/17 12:46 Vital Signs Temperature 99.0 F 08/27/17 09:55 Pulse Rate 105 H 08/27/17 09:55 Respiratory Rate 16 08/27/17 09:55 Blood Pressure 100/76 08/27/17 09:55 O2 Sat by Pulse Oximetry (%) Laboratory Tests 08/26/17 08/27/17 08/27/17 22:50 07:40 07:40 WBC 8.4 D RBC 4.28 Hgb 13.1 D Hct 39.5 D MCV 92.3 MCH 30.5 MCHC 33.0 RDW 14.9 Plt Count 541 H MPV 8.6 Sodium 138 Potassium 4.5 Chloride 104 Carbon Dioxide 26 Anion Gap 8 BUN 16 Creatinine 0.9 D Creat Clearance w eGFR > 60 Random Glucose 102 D Calcium 9.0 Total Bilirubin 0.6 D AST 35 ALT 61 D Alkaline Phosphatase 76 D Total Protein 6.9 Albumin 3.7 D Urine Color Yellow Urine Appearance Clear Urine pH 5.0 Ur Specific [place] >= 1.030 Urine Protein Negative Urine Glucose (UA) Negative Urine Ketones Negative Urine Blood Negative Urine Nitrite Negative Urine Bilirubin Negative Urine Urobilinogen 0.2 Ur Leukocyte Esterase Negative RPR Titer 08/27/17 07:40 WBC RBC Hgb Hct MCV MCH MCHC RDW Plt Count MPV Sodium Potassium Chloride Carbon Dioxide Anion Gap BUN Creatinine Creat Clearance w eGFR Random Glucose Calcium Total Bilirubin AST ALT Alkaline Phosphatase Total Protein Albumin Urine Color Urine Appearance Urine pH Ur Specific [place] Urine Protein Urine Glucose (UA) Urine Ketones Urine Blood Urine Nitrite Urine Bilirubin Urine Urobilinogen Ur Leukocyte Esterase RPR Titer Nonreactive aaox3 ambulating no acute distress Assessment: 08/27/17 12:46 withdrawal sx Plan: continue detox increase fluids
[2017-08-27 14:06] VITALS: BP 111/52; TEMP 98.2
--- NOTE | 2017-08-27 14:40 | PN ---
[facility] Progress Note Note: there was pills found on her person. the pills with 6 400mg of neurontin. pt was escorted off the unit by security. pt was AAOx3 no s/s withdrawals noted. belonging were given to patient.
--- NOTE | 2017-08-27 14:41 | DS ---
[facility] Detox Discharge Summary Admission Date: 08/26/17 - History Present History: Alcohol Dependence, Opioid Dependence - Physical Exam Results Vital Signs: Vital Signs Temperature 98.2 F 08/27/17 14:05 Pulse Rate 140 H 08/27/17 14:05 Respiratory Rate 18 08/27/17 14:05 Blood Pressure 111/52 08/27/17 14:05 O2 Sat by Pulse Oximetry (%) - Treatment Hospital Course: Responded well, Discharged Condition Good - Medication Discharge Medications: Ambulatory Orders Levetiracetam [Keppra -] 500 mg PO BID 08/26/17 Quetiapine Fumarate [Seroquel -] 300 mg PO BID 08/26/17 Trazodone HCl [Desyrel -] 150 mg PO HS 08/26/17 - Diagnosis (1) Alcohol dependence with uncomplicated withdrawal Current Visit: Yes Status: Chronic (2) Cocaine dependence Current Visit: Yes Status: Chronic Qualifiers: Substance use status: uncomplicated Qualified Code(s): F14.20 - Cocaine dependence, uncomplicated (3) Nicotine dependence Current Visit: Yes Status: Chronic Qualifiers: Nicotine product type: cigarettes Substance use status: uncomplicated Qualified Code(s): F17.210 - Nicotine dependence, cigarettes, uncomplicated (4) Opioid dependence with withdrawal Current Visit: Yes Status: Chronic - AMA Did Patient Leave Against Medical Advice: No (did not comply with unit rules)
[2017-08-27 16:07] VITALS: PULSE 98
--- NOTE | 2017-08-27 22:34 | EKG ---
Test Reason : Blood Pressure : / mmHG Vent. Rate : 100 BPM Atrial Rate : 100 BPM P-R Int : 142 ms QRS Dur : 062 ms QT Int : 364 ms P-R-T Axes : 051 040 038 degrees QTc Int : 469 ms NORMAL SINUS RHYTHM POSSIBLE LEFT ATRIAL ENLARGEMENT BORDERLINE ECG WHEN COMPARED WITH ECG OF 01-AUG-2017 21:22, NONSPECIFIC T WAVE ABNORMALITY IS NO LONGER PRESENT Confirmed by EDNA WARREN, VIVEK (2016) on 08/27/2017 10:33:22 PM Referred By: Confirmed By:VIVEK BISHOP MD
[2017-08-28] MEDS ORDERED: METHADONE HCL 5 MG TABLET (FOR DETOX USE ONLY) PO ONE (10:00)
[2017-08-28] MEDS ORDERED: diazePAM 5 MG TABLET PO SCH (10:00)
[2017-08-29] MEDS ORDERED: METHADONE HCL 5 MG TABLET (FOR DETOX USE ONLY) PO ONE (10:00)
[2017-08-30] MEDS ORDERED: METHADONE HCL 10 MG TABLET (FOR DETOX USE ONLY) PO ONE (10:00)
[2017-08-30] MEDS ORDERED: diazePAM 5 MG TABLET PO SCH (10:00)
[2017-08-31] MEDS ORDERED: METHADONE HCL 5 MG TABLET (FOR DETOX USE ONLY) PO ONE (06:00)
== END 2017-08-27 14:24 | disposition home or self-care (01) | DRG 773 ==
LOC: YASAS 15:53 → Y6N 18:00
PROVIDERS: ADMIT Internal Medicine; ATTEND Internal Medicine
PROC: HZ2ZZZZ Detoxification Services for Substance Abuse Treatment (ICD-10-PCS; principal; 2017-08-26)
DX: F11.23 Opioid dependence with withdrawal (principal); F10.230 Alcohol dependence with withdrawal, uncomplicated; F14.20 Cocaine dependence, uncomplicated; F17.200 Nicotine dependence, unspecified, uncomplicated; F19.982 Other psychoactive substance use, unspecified with psychoactive substance-induced sleep disorder; F19.94 Other psychoactive substance use, unspecified with psychoactive substance-induced mood disorder; F31.81 Bipolar II disorder; F41.9 Anxiety disorder, unspecified; F31.9 Bipolar disorder, unspecified; G40.909 Epilepsy, unspecified, not intractable, without status epilepticus; K21.9 Gastro-esophageal reflux disease without esophagitis; F43.10 Post-traumatic stress disorder, unspecified; J44.9 Chronic obstructive pulmonary disease, unspecified; R55 Syncope and collapse; L03.119 Cellulitis of unspecified part of limb; R63.4 Abnormal weight loss; Z68.21 Body mass index [BMI] 21.0-21.9, adult
CPT/HCPCS: 36415; 80053; 81003; 85027; 86593; 93005; 93010

== ENCOUNTER 2018-05-27 17:31 | Inpatient (IN) | payer OTHER ==
[2018-05-27 17:54] VITALS: BMI 20.2
--- NOTE | 2018-05-27 19:22 | HP ---
COWS - Scale Resting Pulse: 1= [place] 81-100 Sweatin=Flushed/Facial Moisture Restless Observation: 3= Extraneous Movement Pupil Size: 1= Pupils >than Normal Bone or Joint Aches: 1= Mild Discomfort Runny Nose/ Eye Tearin= Runny Nose/Eyes GI Upset > 30mins: 2= Nausea/Diarrhea Tremor Observation: 2= Slight Tremor Visible Yawning Observation: 1= 1-2x During Session Anxiety or Irritability: 2=Irritable/Anxious Goose Flesh Skin: 0=Smooth Skin COWS Score: 17 CIWA Score - CIWA Score Nausea/Vomitin Muscle Tremors: 2 Anxiety: 3 Agitation: 2 Paroxysmal Sweats: 3 Orientation: 0-Oriented Tacttile Disturbances: 2-Mild Itch/Numbness/Burn (bilateral fingertips) Auditory Disturbances: 1-Very Mild Visual Disturbances: 0-None Headache: 0-None Present CIWA-Ar Total Score: 18 Admission ROS S - HPI Chief Complaint: alcohol and opioid withdrawal symptoms Allergies/Adverse Reactions: Allergies Allergy/AdvReac Type Severity Reaction Status Date / Time Penicillins Allergy Verified 05/27/18 19:01 History of Present Illness: 32 yo female with hx nicotine, IV heroin , cocaine, marijuana and alcohol dependence is here seeking detox. Last detox [facility] September 2017. PMHX: Hep C, seizure d/o (last seizure two months), depression, anxiety. Reports cough and wheezing x three months. Denies suicidal / homicidal ideation. Longest period of sobriety three years, relapsed after of both parents. Exam Limitations: No Limitations - Ebola screening Have you traveled outside of the country in the last 21 days: No (N) Have you had contact with anyone from an Ebola affected area: No Have you been sick,other than usual withdrawal symptoms: No Do you have a fever: No - Review of Systems Constitutional: Chills, Diaphoresis, Loss of Appetite, Weakness, Unintentional Wgt. Loss (10 lbs) EENT: reports: Nose Congestion, Other (left eye stigmatism) Respiratory: reports: Cough (three months), Wheezing Cardiac: reports: No Symptoms Reported GI: reports: Nausea, Poor Appetite, Vomiting : reports: No Symptoms Reported Musculoskeletal: reports: Back Pain, Joint Pain Integumentary: reports: Rash (excoriation on both forearms) Neuro: reports: Headache Endocrine: reports: Increased Thirst Hematology: reports: No Symptoms Reported Psychiatric: reports: Orientated x3, Anxious Other Systems: Reviewed and Negative Patient History - Patient Medical History Hx Anemia: No Hx Asthma: No Hx Chronic Obstructive Pulmonary Disease (COPD): No Hx Cancer: No Hx Cardiac Disorders: No Hx Congestive Heart Failure: No Hx Hypertension: No Hx Hypercholesterolemia: No Hx Pacemaker: No HX Cerebrovascular Accident: No Hx Seizures: Yes (last seizure two months ago, pt on keppra 500mg bid) Hx Dementia: No Hx Diabetes: No Hx Gastrointestinal Disorders: No Hx Liver Disease: Yes (Hep C ) Hx Genitourinary Disorders: No Hx Sexually Transmitted Disorders: No Hx Renal Disease (ESRD): No Hx Thyroid Disease: No Hx Human Immunodeficiency Virus (HIV): No (LAST 05/18) Hx Hepatitis C: Yes Hx Depression: Yes Hx Suicide Attempt: No Hx Bipolar Disorder: Yes Hx Schizophrenia: No - Patient Surgical History Past Surgical History: Yes Hx Neurologic Surgery: No Hx Cataract Extraction: No Hx Cardiac Surgery: No Hx Lung Surgery: No Hx Breast Surgery: No Hx Breast Biopsy: No Hx Abdominal Surgery: No Hx Appendectomy: No Hx Cholecystectomy: No Hx Genitourinary Surgery: No Hx Section: No Hx Orthopedic Surgery: No Hx Hysterectomy: No Other Surgical History: TUBAL LIGATION 2010 Anesthesia Reaction: No - PPD History Date: 08/03/17 Results: 0 mm PPD to be Administered?: No - Reproductive History Patient is a Female of Child Bearing Age (11 -55 yrs old): Yes Last Menstrual Period: 04/15/18 Patient : No - Smoking Cessation Smoking history: Current every day smoker Have you smoked in the past 12 months: Yes Aproximately how many cigarettes per day: 20 Cigars Per Day: 0 Hx Chewing Tobacco Use: No Initiated information on smoking cessation: Yes 'Breaking Loose' booklet given: 05/27/18 - Substance & Tx. History Hx Alcohol Use: Yes Hx Substance Use: Yes Substance Use Type: Alcohol, Cocaine, Heroin, Marijuana Hx Substance Use Treatment: Yes ([facility] 2016) - Substances Abused Alcohol Route: Oral Frequency: Daily Amount used: liquor- 2 pints, Age of first use: 15 Date of Last Use: 05/27/18 Heroin Route: Injection Frequency: Daily Amount used: 10 bags Age of first use: 22 Date of Last Use: 05/27/18 Family Disease History - Family Disease History Family Disease History: Other: Father (ALCOHOL,), Mother (ALCOHOL,MANIC DEPRESSIVE), Sister (DSA) Admission Physical Exam S - Vital Signs Vital Signs: Vital Signs - 24 hr 05/27/18 17:52 Temperature 97.5 F L Pulse Rate 86 Respiratory 18 Rate Blood Pressure 156/90 - Physical General Appearance: Yes: Disheveled, Moderate Distress, Thin, Sweating, Anxious HEENTM: Yes: EOMI, Hearing grossly Normal, Normal ENT Inspection, Normocephalic , Normal Voice, ELIZABETH, Pharynx Normal, Tm's normal, Rhinorrhea Respiratory: Yes: Chest Non-Tender, Lungs Clear, No Respiratory Distress, No Accessory Muscle Use, Wheezing (bilateral), Other (+ cough) Neck: Yes: Within Normal Limits Breast: Yes: Breast Exam Deferred Cardiology: Yes: Regular Rhythm, Regular Rate Abdominal: Yes: Normal Bowel Sounds, Non Tender, Flat, Soft Genitourinary: Yes: Within Normal Limits Back: Yes: Normal Inspection Musculoskeletal: Yes: full range of Motion, Gait Steady, Pelvis Stable, Back pain Extremities: Yes: Normal Capillary Refill, Normal Inspection, Normal Range of Motion, Non-Tender 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, Fully Oriented, Alert, Motor Strength 5/5, Depressed Affect Integumentary: Yes: Rash (both forearms), Track Muhammad (neck bilateral, no infection both forearms with open lesions) Lymphatic: Yes: Within Normal Limits - Diagnostic (1) Cellulitis of arm Current Visit: Yes Status: Acute Qualifiers: Laterality: unspecified laterality Qualified Code(s): L03.119 - Cellulitis of unspecified part of limb (2) Wheezing Current Visit: Yes Status: Acute (3) Cough present for greater than 3 weeks Current Visit: Yes Status: Acute (4) Weight decreased Current Visit: Yes Status: Acute (5) Alcohol dependence with uncomplicated withdrawal Current Visit: Yes Status: Acute (6) Cocaine dependence Current Visit: Yes Status: Acute Qualifiers: Substance use status: uncomplicated Qualified Code(s): F14.20 - Cocaine dependence, uncomplicated (7) GERD (gastroesophageal reflux disease) Current Visit: Yes Status: Chronic Qualifiers: Esophagitis presence: without esophagitis Qualified Code(s): K21.9 - Gastro -esophageal reflux disease without esophagitis (8) Hepatitis C Current Visit: Yes Status: Chronic Qualifiers: Viral hepatitis chronicity: chronic Hepatic coma status: without hepatic coma Qualified Code(s): B18.2 - Chronic viral hepatitis C (9) Marijuana dependence Current Visit: Yes Status: Chronic (10) Nicotine dependence Current Visit: Yes Status: Chronic Qualifiers: Nicotine product type: cigarettes Substance use status: uncomplicated Qualified Code(s): F17.210 - Nicotine dependence, cigarettes, uncomplicated (11) Opioid dependence with withdrawal Current Visit: Yes Status: Chronic (12) Seizure disorder Current Visit: No Status: Chronic Cleared for Admission [facility] - Detox or Rehab [facility] Level of Care: Medically Managed Detox Regimen/Protocol: Methadone/Valium [facility] Breath Alcohol Content Breath Alcohol Content: 0 Urine Pregancy Test - Result Urine Test Results: Negative- NO Line Present Urine Drug Screen - Results Drug Screen Negative: No Urine Drug Screen Results: THC-Marijuana, RITO-Cocaine, OPI-Opiates, MTD- Methadone, OXY-Oxycodone
[2018-05-27] MEDS ORDERED: ALBUTEROL SO4 8 GM HFA INHALER IH PRN (19:28)
[2018-05-27] MEDS ORDERED: IBUPROFEN 400 MG TABLET (FP) PO PRN (19:29)
[2018-05-27] MEDS ORDERED: P-EPHED 60MG/TRIPROLIDI 2.5MG TABLET PO PRN (19:29)
[2018-05-27] MEDS ORDERED: guaiFENesin/D-METHORPHAN HB 10 ML UNIT-DOSE CUPS PO PRN (19:29)
[2018-05-27] MEDS ORDERED: MAG HYDROX/AL HYDROX/SIMETH 30 ML UNIT-DOSE CUP PO PRN (19:29)
[2018-05-27] MEDS ORDERED: MENTHOL/PHENOL 1 EACH UD MM PRN (19:29)
[2018-05-27] MEDS ORDERED: MAGNESIUM CITRATE 300 ML BOTTLE PO PRN (19:29)
[2018-05-27] MEDS ORDERED: MAGNESIUM HYDROX 2400MG/30ML ORAL SUSPENSION 30 ML CUP PO PRN (19:29)
[2018-05-27] MEDS ORDERED: hydrOXYzine PAMOATE 50 MG CAPSULE (FP) PO PRN (19:29)
[2018-05-27] MEDS ORDERED: LOPERAMIDE HCL 2 MG CAPSULE PO PRN (19:29)
[2018-05-27] MEDS ORDERED: ALBUTEROL SO4 0.083% IH SOL 2.5 MG/3 ML VIAL.NEB. NEB PRN (19:37)
[2018-05-27] MEDS ORDERED: METHADONE HCL 10 MG TABLET (FOR DETOX USE ONLY) PO ONE ×2 (20:15→23:00)
[2018-05-27] MEDS ORDERED: diazePAM 5 MG TABLET PO ONE (20:15)
[2018-05-27] MEDS: SULFAMETHOXAZOLE/TRIMETHOPRIM 800MG/160MG D.S. TABLET PO SCH (21:38)
[2018-05-27] MEDS: levETIRAcetam 500 MG TABLET (FP) PO SCH (21:39)
[2018-05-27] MEDS: diazePAM 5 MG TABLET PO SCH (21:40)
[2018-05-27] MEDS ORDERED: CEPHALEXIN MONOHYDRATE 500 MG CAPSULE (UD) PO SCH (22:00)
[2018-05-27] MEDS ORDERED: MELATONIN 5 MG TABLETS PO PRN (22:00)
[2018-05-27] MEDS: THIAMINE HCL 100 MG TABLET (FP) PO SCH (22:45)
[2018-05-27 23:42] LABS: URINE APPEARANCE TURBID; URINE BILIRUBIN NEGATIVE (<2.0 mg/dL); URINE COLOR YELLOW; URINE GLUCOSE (UA) NEGATIVE (NEGATIVE); URINE KETONE NEGATIVE (NEGATIVE); URINE LEUK ESTERASE NEGATIVE (NEGATIVE); URINE NITRITE NEGATIVE (NEGATIVE); URINE PROTEIN NEGATIVE (NEGATIVE)
[2018-05-28] MEDS: diazePAM 5 MG TABLET PO SCH ×3 (05:45→22:19)
[2018-05-28] MEDS ORDERED: METHADONE HCL 10 MG TABLET (FOR DETOX USE ONLY) PO SCH (10:00)
[2018-05-28] MEDS ORDERED: NICOTINE 21 MG/24 HOURS TOPICAL PATCH TD SCH (10:00)
[2018-05-28] MEDS ORDERED: PRENATAL VITAMINS W/ FOLIC ACID TABLET (FP) PO SCH (10:00)
[2018-05-28 10:06] LABS: HEMATOCRIT 38.4 % (32.4-45.2); HEMOGLOBIN 12.6 GM/dL (10.7-15.3); MCH 29.4 pg (25.7-33.7); MCHC 32.8 g/dl (32.0-36.0); MEAN CELL VOLUME 89.5 fl (80-96); MEAN PLT VOLUME 8.7 fl (7.5-11.1); PLATELET COUNT 508 K/MM3 (134-434); RBC 4.29 M/mm3 (3.60-5.2); RDW 16.2 % (11.6-15.6); WHITE BLOOD COUNT 6.6 K/mm3 (4.0-10.0)
[2018-05-28 10:14] LABS: CHLORIDE 105 mmol/L (98-107); POTASSIUM 4.8 mmol/L (3.5-5.1); SODIUM 141 mmol/L (136-145)
[2018-05-28 10:20] LABS: ALBUMIN 3.4 g/dl (3.4-5.0); ALK PHOS 70 U/L (45-117); ANION GAP 8 MMOL/L (8-16); BILIRUBIN,TOTAL 0.2 mg/dL (0.2-1.0); BLOOD UREA NITROGEN 13 mg/dL (7-18); CALCIUM 9.1 mg/dL (8.5-10.1); CO2 28 mmol/L (21-32); CREATININE 0.7 mg/dL (0.55-1.02); GLUCOSE,RANDOM 70 mg/dL (74-106); SGOT/AST 30 U/L (15-37); SGPT/ALT 35 U/L (12-78); TOT PROT 6.8 g/dl (6.4-8.2)
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
[2018-05-28] MEDS ORDERED: QUEtiapine FUMARATE 100 MG TABLET (FP) PO SCH (11:15)
[2018-05-28] MEDS: diazePAM 5 MG TABLET PO PRN ×2 (11:17→17:57)
[2018-05-28] MEDS: SULFAMETHOXAZOLE/TRIMETHOPRIM 800MG/160MG D.S. TABLET PO SCH ×2 (11:17→22:18)
[2018-05-28] MEDS: levETIRAcetam 500 MG TABLET (FP) PO SCH ×2 (11:17→22:18)
[2018-05-28] MEDS: NICOTINE POLACRILEX 2 MG GUM BC PRN ×2 (11:21→15:00)
--- NOTE | 2018-05-28 12:09 | EKG ---
Test Reason : Blood Pressure : / mmHG Vent. Rate : 070 BPM Atrial Rate : 070 BPM P-R Int : 138 ms QRS Dur : 066 ms QT Int : 422 ms P-R-T Axes : 043 048 033 degrees QTc Int : 455 ms NORMAL SINUS RHYTHM NORMAL ECG WHEN COMPARED WITH ECG OF 15-SEP-2017 18:24, VENT. RATE HAS DECREASED BY 55 BPM Confirmed by CLINTON MOSS MD ([id number]) on 05/28/2018 12:08:58 PM Referred By: Confirmed By:CLINTON MOSS MD
--- NOTE | 2018-05-28 12:29 | PN ---
[facility] CIWA - CIWA Score Nausea/Vomitin Muscle Tremors: 2 Anxiety: 3 Agitation: 2 Paroxysmal Sweats: 3 Orientation: 0-Oriented Tacttile Disturbances: 1-Very Mild Itch/Numbness Auditory Disturbances: 0-None Visual Disturbances: 0-None Headache: 0-None Present CIWA-Ar Total Score: 13 S COWS - Scale Resting Pulse: 1= [place] 81-100 Sweatin=Flushed/Facial Moisture Restless Observation: 1= Difficult to Sit Still Pupil Size: 1= Pupils >than Normal Bone or Joint Aches: 1= Mild Discomfort Runny Nose/ Eye Tearin= Nasal Congestion GI Upset > 30mins: 1= Stomach Cramp Tremor Observation of Outstretched Hands: 1= Tremor [employer], Not Seen Yawning Observation: 0= None Anxiety or Irritability: 1=Feels Anxious/Irritable Goose Flesh Skin: 0=Smooth Skin COWS Score: 10 S Progress Note (SOAP) Subjective: interrupted sleep, sweats,shakes, cramps Objective: 05/28/18 12:27 Vital Signs Temperature 97.9 F 05/28/18 11:28 Pulse Rate 76 05/28/18 11:28 Respiratory Rate 16 05/28/18 11:28 Blood Pressure 103/81 05/28/18 11:28 O2 Sat by Pulse Oximetry (%) Laboratory Tests 05/27/18 05/28/18 05/28/18 Unknown 07:00 07:00 WBC 6.6 RBC 4.29 Hgb 12.6 Hct 38.4 MCV 89.5 MCH 29.4 MCHC 32.8 RDW 16.2 H Plt Count 508 H MPV 8.7 Sodium 141 Potassium 4.8 Chloride 105 Carbon Dioxide 28 Anion Gap 8 BUN 13 Creatinine 0.7 Creat Clearance w eGFR > 60 Random Glucose 70 L Calcium 9.1 Total Bilirubin 0.2 AST 30 ALT 35 Alkaline Phosphatase 70 Total Protein 6.8 Albumin 3.4 Urine Color Yellow Urine Appearance Turbid Urine pH 5.0 Ur Specific [place] 1.032 Urine Protein Negative Urine Glucose (UA) Negative Urine Ketones Negative Urine Blood Negative Urine Nitrite Negative Urine Bilirubin Negative Urine Urobilinogen 2.0 H Ur Leukocyte Esterase Negative pt aox3 in nad anxious.irritable Assessment: 05/28/18 12:27 withdrawal sx's hcv gerd Plan: cont detoox increase fluids pending rpr
[2018-05-28] MEDS: ACETAMINOPHEN 325 MG TABLET (FP) PO PRN (16:50)
[2018-05-28] MEDS ORDERED: traZODone HCL 50 MG TABLET (FP) PO SCH (22:00)
[2018-05-28] MEDS ORDERED: QUEtiapine FUMARATE 300 MG TABLET PO SCH (22:00)
[2018-05-28] MEDS: THIAMINE HCL 100 MG TABLET (FP) PO SCH (23:33)
[2018-05-29] MEDS: diazePAM 5 MG TABLET PO PRN (09:06)
[2018-05-29] MEDS: ACETAMINOPHEN 325 MG TABLET (FP) PO PRN (09:09)
[2018-05-29 09:47] VITALS: BP 117/78; PULSE 60; TEMP 98.3
[2018-05-29] MEDS ORDERED: diazePAM 5 MG TABLET PO SCH (10:00)
[2018-05-29] MEDS ORDERED: METHADONE HCL 5 MG TABLET (FOR DETOX USE ONLY) PO SCH (10:00)
--- NOTE | 2018-05-29 13:48 | PN ---
S CIWA - CIWA Score Nausea/Vomitin Muscle Tremors: 2 Anxiety: 3 Agitation: 3 Paroxysmal Sweats: 2 Orientation: 0-Oriented Tacttile Disturbances: 2-Mild Itch/Numbness/Burn Auditory Disturbances: 1-Very Mild Visual Disturbances: 1-Very Mild Sensitivity Headache: 2-Mild CIWA-Ar Total Score: 18 BHS COWS - Scale Resting Pulse: 0= [place] 80 or Below Sweatin=Flushed/Facial Moisture Restless Observation: 3= Extraneous Movement Pupil Size: 0= Normal to Room Light Bone or Joint Aches: 2= Severe Diffuse Aches Runny Nose/ Eye Tearin= Runny Nose/Eyes GI Upset > 30mins: 2= Nausea/Diarrhea Tremor Observation of Outstretched Hands: 2= Slight Tremor Visible Yawning Observation: 1= 1-2x During Session Anxiety or Irritability: 2=Irritable/Anxious Goose Flesh Skin: 0=Smooth Skin COWS Score: 16 BHS Progress Note (SOAP) Subjective: Shakes, sweats,nausea and pain Objective: 05/29/18 13:47 Vital Signs - 8 hr 05/29/18 05/29/18 06:00 09:47 Temperature 97.3 F L 98.3 F Pulse Rate 80 60 Respiratory 16 18 Rate Blood Pressure 104/56 117/78 Laboratory Last Values WBC 6.6 K/mm3 (4.0-10.0) 05/28/18 07:00 RBC 4.29 M/mm3 (3.60-5.2) 05/28/18 07:00 Hgb 12.6 GM/dL (10.7-15.3) 05/28/18 07:00 Hct 38.4 % (32.4-45.2) 05/28/18 07:00 MCV 89.5 fl (80-96) 05/28/18 07:00 MCH 29.4 pg (25.7-33.7) 05/28/18 07:00 MCHC 32.8 g/dl (32.0-36.0) 05/28/18 07:00 RDW 16.2 % (11.6-15.6) H 05/28/18 07:00 Plt Count 508 K/MM3 (134-434) H 05/28/18 07:00 MPV 8.7 fl (7.5-11.1) 05/28/18 07:00 Sodium 141 mmol/L (136-145) 05/28/18 07:00 Potassium 4.8 mmol/L (3.5-5.1) 05/28/18 07:00 Chloride 105 mmol/L (98-107) 05/28/18 07:00 Carbon Dioxide 28 mmol/L (21-32) 05/28/18 07:00 Anion Gap 8 MMOL/L (8-16) 05/28/18 07:00 BUN 13 mg/dL (7-18) 05/28/18 07:00 Creatinine 0.7 mg/dL (0.55-1.02) 05/28/18 07:00 Creat Clearance w eGFR > 60 (>60) 05/28/18 07:00 Random Glucose 70 mg/dL (74-106) L 05/28/18 07:00 Calcium 9.1 mg/dL (8.5-10.1) 05/28/18 07:00 Total Bilirubin 0.2 mg/dL (0.2-1.0) 05/28/18 07:00 AST 30 U/L (15-37) 05/28/18 07:00 ALT 35 U/L (12-78) 05/28/18 07:00 Alkaline Phosphatase 70 U/L (45-117) 05/28/18 07:00 Total Protein 6.8 g/dl (6.4-8.2) 05/28/18 07:00 Albumin 3.4 g/dl (3.4-5.0) 05/28/18 07:00 Urine Color Yellow 05/27/18 Unknown Urine Appearance Turbid 05/27/18 Unknown Urine pH 5.0 (5.0-8.0) 05/27/18 Unknown Ur Specific [place] 1.032 (1.001-1.035) 05/27/18 Unknown Urine Protein Negative (NEGATIVE) 05/27/18 Unknown Urine Glucose (UA) Negative (NEGATIVE) 05/27/18 Unknown Urine Ketones Negative (NEGATIVE) 05/27/18 Unknown Urine Blood Negative (NEGATIVE) 05/27/18 Unknown Urine Nitrite Negative (NEGATIVE) 05/27/18 Unknown Urine Bilirubin Negative (<2.0 mg/dL) 05/27/18 Unknown Urine Urobilinogen 2.0 mg/dL (0.2-1.0) H 05/27/18 Unknown Ur Leukocyte Esterase Negative (NEGATIVE) 05/27/18 Unknown RPR Titer Nonreactive (NONREACTIVE) 05/28/18 07:00 Labs noted Assessment: 05/29/18 13:48 Withdrawal sx Plan: Continue detox
--- NOTE | 2018-05-29 13:58 | DS ---
[facility] Detox Discharge Summary Admission Date: 05/27/18 Discharge Date: 05/29/18 - History Pertinent Past History: Anxiety and bipolar disorder - Physical Exam Results Vital Signs: Vital Signs Temperature 98.3 F 05/29/18 09:47 Pulse Rate 60 05/29/18 09:47 Respiratory Rate 18 05/29/18 09:47 Blood Pressure 117/78 05/29/18 09:47 O2 Sat by Pulse Oximetry (%) Pertinent Admission Physical Exam Findings: Withdrawal sx Laboratory Last Values WBC 6.6 K/mm3 (4.0-10.0) 05/28/18 07:00 RBC 4.29 M/mm3 (3.60-5.2) 05/28/18 07:00 Hgb 12.6 GM/dL (10.7-15.3) 05/28/18 07:00 Hct 38.4 % (32.4-45.2) 05/28/18 07:00 MCV 89.5 fl (80-96) 05/28/18 07:00 MCH 29.4 pg (25.7-33.7) 05/28/18 07:00 MCHC 32.8 g/dl (32.0-36.0) 05/28/18 07:00 RDW 16.2 % (11.6-15.6) H 05/28/18 07:00 Plt Count 508 K/MM3 (134-434) H 05/28/18 07:00 MPV 8.7 fl (7.5-11.1) 05/28/18 07:00 Sodium 141 mmol/L (136-145) 05/28/18 07:00 Potassium 4.8 mmol/L (3.5-5.1) 05/28/18 07:00 Chloride 105 mmol/L (98-107) 05/28/18 07:00 Carbon Dioxide 28 mmol/L (21-32) 05/28/18 07:00 Anion Gap 8 MMOL/L (8-16) 05/28/18 07:00 BUN 13 mg/dL (7-18) 05/28/18 07:00 Creatinine 0.7 mg/dL (0.55-1.02) 05/28/18 07:00 Creat Clearance w eGFR > 60 (>60) 05/28/18 07:00 Random Glucose 70 mg/dL (74-106) L 05/28/18 07:00 Calcium 9.1 mg/dL (8.5-10.1) 05/28/18 07:00 Total Bilirubin 0.2 mg/dL (0.2-1.0) 05/28/18 07:00 AST 30 U/L (15-37) 05/28/18 07:00 ALT 35 U/L (12-78) 05/28/18 07:00 Alkaline Phosphatase 70 U/L (45-117) 05/28/18 07:00 Total Protein 6.8 g/dl (6.4-8.2) 05/28/18 07:00 Albumin 3.4 g/dl (3.4-5.0) 05/28/18 07:00 Urine Color Yellow 05/27/18 Unknown Urine Appearance Turbid 05/27/18 Unknown Urine pH 5.0 (5.0-8.0) 05/27/18 Unknown Ur Specific [place] 1.032 (1.001-1.035) 05/27/18 Unknown Urine Protein Negative (NEGATIVE) 05/27/18 Unknown Urine Glucose (UA) Negative (NEGATIVE) 05/27/18 Unknown Urine Ketones Negative (NEGATIVE) 05/27/18 Unknown Urine Blood Negative (NEGATIVE) 05/27/18 Unknown Urine Nitrite Negative (NEGATIVE) 05/27/18 Unknown Urine Bilirubin Negative (<2.0 mg/dL) 05/27/18 Unknown Urine Urobilinogen 2.0 mg/dL (0.2-1.0) H 05/27/18 Unknown Ur Leukocyte Esterase Negative (NEGATIVE) 05/27/18 Unknown RPR Titer Nonreactive (NONREACTIVE) 05/28/18 07:00 Labs noted - Medication Discharge Medications: Ambulatory Orders Quetiapine Fumarate [Seroquel -] 300 mg PO BID #60 tablet 09/16/17 traZODone HCL [Desyrel -] 150 mg PO HS #30 tablet 09/16/17 levETIRAcetam [Keppra -] 500 mg PO BID #90 tablet 09/18/17 Albuterol Sulfate Inhaler - [Ventolin HFA Inhaler -] 2 puff IH Q4H PRN #1 inhaler 09/19/17 - Diagnosis (1) Alcohol dependence with uncomplicated withdrawal Status: Acute (2) Benzodiazepine dependence Status: Acute (3) Substance induced mood disorder Status: Acute (4) Substance-induced sleep disorder Status: Acute (5) Cocaine dependence Status: Chronic Qualifiers: Substance use status: uncomplicated Qualified Code(s): F14.20 - Cocaine dependence, uncomplicated (6) GERD (gastroesophageal reflux disease) Status: Chronic Qualifiers: Esophagitis presence: without esophagitis Qualified Code(s): K21.9 - Gastro -esophageal reflux disease without esophagitis (7) PTSD (post-traumatic stress disorder) Status: Chronic (8) Seizure disorder Status: Chronic - AMA Did Patient Leave Against Medical Advice: Yes
[2018-05-31] MEDS ORDERED: diazePAM 5 MG TABLET PO SCH (10:00)
[2018-05-31] MEDS ORDERED: METHADONE HCL 10 MG TABLET (FOR DETOX USE ONLY) PO SCH (10:00)
[2018-06-01] MEDS ORDERED: METHADONE HCL 5 MG TABLET (FOR DETOX USE ONLY) PO SCH (06:00)
== END 2018-05-29 11:25 | disposition left against medical advice (07) | DRG 770 ==
LOC: YASAS 17:31 → Y6N 19:58
PROVIDERS: ADMIT Surgery; ATTEND Surgery
PROC: HZ2ZZZZ Detoxification Services for Substance Abuse Treatment (ICD-10-PCS; principal; 2018-05-27)
DX: F11.23 Opioid dependence with withdrawal (principal); F10.230 Alcohol dependence with withdrawal, uncomplicated; F14.20 Cocaine dependence, uncomplicated; F12.20 Cannabis dependence, uncomplicated; F17.210 Nicotine dependence, cigarettes, uncomplicated; F19.24 Other psychoactive substance dependence with psychoactive substance-induced mood disorder; F19.282 Other psychoactive substance dependence with psychoactive substance-induced sleep disorder; F31.81 Bipolar II disorder; K21.9 Gastro-esophageal reflux disease without esophagitis; G40.909 Epilepsy, unspecified, not intractable, without status epilepticus; L03.119 Cellulitis of unspecified part of limb; B18.2 Chronic viral hepatitis C; R06.2 Wheezing; R05 Cough; Z88.0 Allergy status to penicillin
CPT/HCPCS: 36415; 71046-TC-FY; 80053; 81003; 85027; 86593; 93005; 93010

== ENCOUNTER 2018-10-07 08:45 | Inpatient (IN) | payer OTHER ==
[2018-10-07 09:31] VITALS: BMI 19.8
--- NOTE | 2018-10-07 10:53 | HP ---
COWS - Scale Resting Pulse: 1= [place] 81-100 Sweatin= Chills/Flushing Restless Observation: 3= Extraneous Movement Pupil Size: 1= Pupils >than Normal Bone or Joint Aches: 2= Severe Diffuse Aches Runny Nose/ Eye Tearin= Runny Nose/Eyes GI Upset > 30mins: 2= Nausea/Diarrhea Tremor Observation: 2= Slight Tremor Visible Yawning Observation: 2= >3x During Session Anxiety or Irritability: 2=Irritable/Anxious Goose Flesh Skin: 0=Smooth Skin COWS Score: 18 CIWA Score Nausea/Vomitin Muscle Tremors: 2 Anxiety: 2 Agitation: 2 Paroxysmal Sweats: 1-Minimal Palms Moist Orientation: 0-Oriented Tacttile Disturbances: 1-Very Mild Itch/Numbness Auditory Disturbances: 1-Very Mild Visual Disturbances: 0-None Headache: 2-Mild CIWA-Ar Total Score: 13 - Admission Criteria [facility] Guidelines: Admission for Medically Managed Detox: Requires at least one of the followin. CIWA greater than 12 2. Seizures within the past 24 hours 3. Delirium tremens within the past 24 hours 4. Hallucinations within the past 24 hours 5. Acute intervention needed for co occurring medical disorder 6. Acute intervention needed for co occurring psychiatric disorder 7. Severe withdrawal that cannot be handled at a lower level of care (continued vomiting, continued diarrhea, abnormal vital signs) requiring intravenous medication and/or fluids 8. Patient presents the following: CIWA greater than 12 Admission Criteria Met: Admission criteria met Admission ROS S - [facility] Chief Complaint: i need help to stop using heroin,alcohol,cocaine and street meth Allergies/Adverse Reactions: Allergies Allergy/AdvReac Type Severity Reaction Status Date / Time buprenorphine [From Suboxone] Allergy Severe Hives Verified 10/07/18 10:13 naloxone [From Suboxone] Allergy Severe Hives Verified 10/07/18 10:13 Penicillins Allergy Severe unknown Verified 10/07/18 10:13 History of Present Illness: this 32 years old female with heroin alcohol,cocaine,street meth,seeking detox, withdrawal symptom,last detox to -05/29/18 not completed left because sister hepatitis c weight loss nicotine dependence multiple admissions in the past,but keep relapsing seizure last 04/21 longest period of sobriety 2 years plan for rehab after detox bipolar disorder non compliance Exam Limitations: No Limitations - Ebola screening Have you traveled outside of the country in the last 21 days: No Have you had contact with anyone from an Ebola affected area: No Have you been sick,other than usual withdrawal symptoms: No Do you have a fever: No - Review of Systems Constitutional: Chills, Loss of Appetite, Malaise, Night Sweats, Changes in sleep, Weakness, Unintentional Wgt. Loss EENT: reports: Tearing, Nose Congestion Respiratory: reports: No Symptoms reported Cardiac: reports: No Symptoms Reported GI: reports: Diarrhea, Nausea, Vomiting, Abdominal cramping : reports: No Symptoms Reported Musculoskeletal: reports: Back Pain, Joint Pain, Muscle Pain, Joint Stiffness Neuro: reports: Seizure Endocrine: reports: No Symptoms Reported Hematology: reports: No Symptoms Reported Psychiatric: reports: No Sypmtoms Reported, Judgement Intact, Mood/Affect Appropiate, Orientated x3, other (bipolar disorder) Patient History - Patient Medical History Hx Anemia: No Hx Asthma: Yes Hx Chronic Obstructive Pulmonary Disease (COPD): No Hx Cancer: No Hx Cardiac Disorders: No Hx Congestive Heart Failure: No Hx Hypertension: No Hx Hypercholesterolemia: No Hx Pacemaker: No HX Cerebrovascular Accident: No Hx Seizures: Yes (last episode was in 04/2018) Hx Dementia: No Hx Diabetes: No Hx Gastrointestinal Disorders: No Hx Liver Disease: Yes (Hep C ) Hx Genitourinary Disorders: No Hx Sexually Transmitted Disorders: No Hx Renal Disease (ESRD): No Hx Thyroid Disease: No Hx Human Immunodeficiency Virus (HIV): No (LAST 05/18 negative) Hx Hepatitis C: Yes Hx Depression: Yes Hx Suicide Attempt: No Hx Bipolar Disorder: Yes Hx Schizophrenia: No Other Medical History: no suicidal,no homicidal - Patient Surgical History Past Surgical History: Yes Hx Neurologic Surgery: No Hx Cataract Extraction: No Hx Cardiac Surgery: No Hx Lung Surgery: No Hx Breast Surgery: No Hx Breast Biopsy: No Hx Abdominal Surgery: No Hx Appendectomy: No Hx Cholecystectomy: No Hx Genitourinary Surgery: No Hx Section: No Hx Orthopedic Surgery: No Hx Hysterectomy: No Other Surgical History: TUBAL LIGATION 2010 Anesthesia Reaction: No - PPD History Previous Implant?: Yes Documented Results: Negative w/o proof Implanted On Prior R Admission?: Yes Date: 08/03/17 Results: 0 mm PPD to be Administered?: Yes - Reproductive History Patient is a Female of Child Bearing Age (11 -55 yrs old): Yes Last Menstrual Period: 10/03/18 Patient : No - Smoking Cessation Smoking history: Current every day smoker Have you smoked in the past 12 months: Yes Aproximately how many cigarettes per day: 20 Cigars Per Day: 0 Hx Chewing Tobacco Use: No Initiated information on smoking cessation: Yes 'Breaking Loose' booklet given: 10/07/18 - Substance & Tx. History Hx Alcohol Use: Yes Hx Substance Use: Yes Substance Use Type: Cocaine, Heroin Hx Substance Use Treatment: Yes ([facility] 05/27/18 to 05/29/18) - Substances Abused Heroin Route: Injection Frequency: Daily Amount used: 4 bags Age of first use: 26 Date of Last Use: 10/06/18 Cocaine Route: Injection Frequency: Daily Amount used: $40 Age of first use: 19 Date of Last Use: 10/06/18 Alcohol-vodka Route: Oral Frequency: Daily Amount used: 1 1/2 pts. Age of first use: 15 Date of Last Use: 10/06/[address] [place] Route: Oral Frequency: 1-3 times last 30 days Amount used: 10 mg. Age of first use: 26 Date of Last Use: 10/06/18 Family Disease History - Family Disease History Family Disease History: Other: Father (ALCOHOL,sober), Mother (ALCOHOL,MANIC DEPRESSIVE), Sister (DSA) Admission Physical Exam S - Vital Signs Vital Signs: Vital Signs - 24 hr 10/07/18 09:29 Temperature 98.0 F Pulse Rate 98 H Respiratory 20 Rate Blood Pressure 141/91 - Physical General Appearance: Yes: Moderate Distress, Tremorous, Irritable, Sweating, Anxious HEENTM: Yes: Normal ENT Inspection, ELIZABETH, Pharynx Normal Respiratory: Yes: Lungs Clear, Normal Breath Sounds, No Respiratory Distress Neck: Yes: Within Normal Limits, Supple, Trachea in good position Breast: Yes: Breast Exam Deferred Cardiology: Yes: Within Normal Limits, Regular Rhythm, Regular Rate, S1, S2 Abdominal: Yes: Within Normal Limits, Normal Bowel Sounds, Non Tender, Flat, Soft Genitourinary: Yes: Within Normal Limits Back: Yes: Muscle Spasm Musculoskeletal: Yes: full range of Motion, Back pain, Joint Stiffness, Muscle Pain Extremities: Yes: Tremors Neurological: Yes: online advertising director II-XII NML intact, Fully Oriented, Alert, Motor Strength 5/5 Integumentary: Yes: Dry, Track Muhammad Lymphatic: Yes: Within Normal Limits - Diagnostic (1) Opioid dependence with withdrawal Current Visit: No Status: Chronic (2) Alcohol dependence with uncomplicated withdrawal Current Visit: No Status: Acute (3) Cocaine dependence Current Visit: Yes Status: Acute (4) Weight decreased Current Visit: No Status: Acute (5) Bipolar disorder Current Visit: No Status: Chronic (6) Hepatitis C Current Visit: No Status: Chronic Qualifiers: Viral hepatitis chronicity: chronic Hepatic coma status: without hepatic coma Qualified Code(s): B18.2 - Chronic viral hepatitis C (7) IVDU (intravenous drug user) Current Visit: Yes Status: Acute (8) Seizure Current Visit: Yes Status: Acute Cleared for Admission [facility] - Detox or Rehab [facility] Level of Care: Medically Managed Detox Regimen/Protocol: Methadone/Valium S Breath Alcohol Content Breath Alcohol Content: 0 Urine Drug Screen - Results Drug Screen Negative: No Urine Drug Screen Results: THC-Marijuana, RITO-Cocaine, OPI-Opiates, BAR- Barbiturates, MTD-Methadone, FEN-Fentanyl
[2018-10-07] MEDS ORDERED: P-EPHED 60MG/TRIPROLIDI 2.5MG TABLET PO PRN (11:05)
[2018-10-07] MEDS ORDERED: IBUPROFEN 400 MG TABLET (FP) PO PRN (11:05)
[2018-10-07] MEDS ORDERED: NICOTINE POLACRILEX 2 MG GUM BUC PRN (11:05)
[2018-10-07] MEDS ORDERED: guaiFENesin/D-METHORPHAN HB 10 ML UNIT-DOSE CUPS PO PRN (11:05)
[2018-10-07] MEDS ORDERED: ACETAMINOPHEN 325 MG TABLET (FP) PO PRN (11:05)
[2018-10-07] MEDS ORDERED: MAGNESIUM HYDROX 2400MG/30ML ORAL SUSPENSION 30 ML CUP PO PRN (11:05)
[2018-10-07] MEDS ORDERED: LOPERAMIDE HCL 2 MG CAPSULE PO PRN (11:05)
[2018-10-07] MEDS ORDERED: MAGNESIUM CITRATE 300 ML BOTTLE PO PRN (11:05)
[2018-10-07] MEDS ORDERED: MENTHOL/PHENOL 1 EACH UD MM PRN (11:05)
[2018-10-07] MEDS ORDERED: MAG HYDROX/AL HYDROX/SIMETH 30 ML UNIT-DOSE CUP PO PRN (11:05)
[2018-10-07] MEDS ORDERED: ALBUTEROL SO4 8 GM HFA INHALER IH PRN (11:09)
[2018-10-07] MEDS ORDERED: diazePAM 5 MG TABLET PO ONE (11:25)
[2018-10-07] MEDS ORDERED: METHADONE HCL 10 MG TABLET (FOR DETOX USE ONLY) PO ONE ×2 (11:25→23:00)
[2018-10-07] MEDS: NICOTINE 21 MG/24 HOURS TOPICAL PATCH TD SCH (12:07)
[2018-10-07] MEDS: diazePAM 5 MG TABLET PO SCH ×2 (13:53→22:17)
[2018-10-07 17:20] LABS: URINE APPEARANCE SLCLOUDY; URINE BILIRUBIN NEGATIVE (<2.0 mg/dL); URINE COLOR AMBER; URINE GLUCOSE (UA) NEGATIVE (NEGATIVE); URINE KETONE NEGATIVE (NEGATIVE); URINE LEUK ESTERASE NEGATIVE (NEGATIVE); URINE NITRITE NEGATIVE (NEGATIVE); URINE PROTEIN 1+ (NEGATIVE); URINE UROBILINOGEN 4.0 E.U/dl mg/dL (0.2-1.0)
[2018-10-07] MEDS: diazePAM 5 MG TABLET PO PRN (17:57)
[2018-10-07] MEDS ORDERED: PROCHLORPERAZINE MALEATE 5 MG TABLET PO PRN (18:10)
[2018-10-07 18:11] LABS: EPI CELLS MANY /HPF (FEW); URINE BACTERIA RARE /hpf (NONE SEEN); URINE MUCUS MANY
[2018-10-07] MEDS ORDERED: MELATONIN 5 MG TABLETS PO PRN (22:00)
[2018-10-07] MEDS ORDERED: THIAMINE HCL 100 MG TABLET (FP) PO SCH (22:00)
[2018-10-07] MEDS: levETIRAcetam 500 MG TABLET (FP) PO SCH (22:17)
[2018-10-08] MEDS: diazePAM 5 MG TABLET PO SCH ×2 (05:36→14:39)
[2018-10-08] MEDS: diazePAM 5 MG TABLET PO PRN (08:46)
[2018-10-08] MEDS ORDERED: METHADONE HCL 10 MG TABLET (FOR DETOX USE ONLY) PO SCH (10:00)
[2018-10-08] MEDS ORDERED: PRENATAL VITAMINS W/ FOLIC ACID TABLET (FP) PO SCH (10:00)
[2018-10-08 10:53] LABS: HEMATOCRIT 43.3 % (32.4-45.2); HEMOGLOBIN 13.9 GM/dL (10.7-15.3); MCH 29.4 pg (25.7-33.7); MCHC 32.1 g/dl (32.0-36.0); MEAN CELL VOLUME 91.5 fl (80-96); MEAN PLT VOLUME 9.6 fl (7.5-11.1); PLATELET COUNT 605 K/MM3 (134-434); RBC 4.73 M/mm3 (3.60-5.2); RDW 16.5 % (11.6-15.6); WHITE BLOOD COUNT 10.1 K/mm3 (4.0-10.0)
[2018-10-08] MEDS: levETIRAcetam 500 MG TABLET (FP) PO SCH (11:22)
[2018-10-08] MEDS: NICOTINE 21 MG/24 HOURS TOPICAL PATCH TD SCH (11:24)
[2018-10-08 11:38] LABS: ALBUMIN 4.2 g/dl (3.4-5.0); ALK PHOS 95 U/L (45-117); ANION GAP 9 MMOL/L (8-16); BILIRUBIN,TOTAL 0.7 mg/dL (0.2-1); BLOOD UREA NITROGEN 15 mg/dL (7-18); CALCIUM 9.4 mg/dL (8.5-10.1); CHLORIDE 100 mmol/L (98-107); CO2 26 mmol/L (21-32); CREATININE 0.8 mg/dL (0.55-1.3); GLUCOSE,RANDOM 76 mg/dL (74-106); POTASSIUM 4.8 mmol/L (3.5-5.1); SGOT/AST 41 U/L (15-37); SGPT/ALT 43 U/L (13-61); SODIUM 136 mmol/L (136-145); TOT PROT 8.2 g/dl (6.4-8.2)
[2018-10-08] MEDS ORDERED: FLU VACCINE QUAD 60 MCG/0.5 ML (MDV 18-19) IM ONE (12:00)
[2018-10-08] MEDS ORDERED: ONDANSETRON *ODT* 4 MG TABLET SL PRN (13:35)
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
[2018-10-08 15:58] VITALS: BP 109/65; PULSE 88; TEMP 98.1
--- NOTE | 2018-10-08 19:00 | PN ---
S CIWA - CIWA Score Nausea/Vomitin Muscle Tremors: 3 Anxiety: 3 Agitation: 1-Slight > Activity Paroxysmal Sweats: 3 Orientation: 0-Oriented Tacttile Disturbances: 2-Mild Itch/Numbness/Burn Auditory Disturbances: 0-None Visual Disturbances: 0-None Headache: 2-Mild CIWA-Ar Total Score: 17 BHS COWS - Scale Resting Pulse: 1= [place] 81-100 Sweatin= Chills/Flushing Restless Observation: 1= Difficult to Sit Still Pupil Size: 0= Normal to Room Light Bone or Joint Aches: 2= Severe Diffuse Aches Runny Nose/ Eye Tearin= None GI Upset > 30mins: 2= Nausea/Diarrhea Tremor Observation of Outstretched Hands: 2= Slight Tremor Visible Yawning Observation: 0= None Anxiety or Irritability: 2=Irritable/Anxious Goose Flesh Skin: 3=Piloerection COWS Score: 14 BHS Progress Note (SOAP) Subjective: Nausea, Body Aches, Sweating, H/A, Tremors, Diarrhea. Objective: ATIENT A & O X 3, OBSERVED AMBULATING ON UNIT. IN NO ACUTE DISTRESS. 10/08/18 18:59 Vital Signs Temperature 98.1 F 10/08/18 15:57 Pulse Rate 88 10/08/18 15:57 Respiratory Rate 18 10/08/18 15:57 Blood Pressure 109/65 10/08/18 15:57 O2 Sat by Pulse Oximetry (%) Laboratory Tests 10/07/18 10/07/18 10/08/18 12:40 13:50 05:45 WBC 10.1 H RBC 4.73 Hgb 13.9 Hct 43.3 MCV 91.5 MCH 29.4 MCHC 32.1 RDW 16.5 H Plt Count 605 H MPV 9.6 D Sodium Potassium Chloride Carbon Dioxide Anion Gap BUN Creatinine Creat Clearance w eGFR Random Glucose Calcium Total Bilirubin AST ALT Alkaline Phosphatase Total Protein Albumin Urine Color Opal Urine Appearance Slcloudy Urine pH 5.0 Ur Specific [place] 1.029 Urine Protein 1+ H Urine Glucose (UA) Negative Urine Ketones Negative Urine Blood Negative Urine Nitrite Negative Urine Bilirubin Negative Urine Urobilinogen 4.0 e.u/dl H Ur Leukocyte Esterase Negative Urine WBC (Auto) 5 Urine RBC (Auto) 2 Ur Epithelial Cells Many Urine Bacteria Rare Urine Mucus Many RPR Titer HIV 1&2 Antibody Screen Negative HIV P24 Antigen Negative 10/08/18 10/08/18 05:45 05:45 WBC RBC Hgb Hct MCV MCH MCHC RDW Plt Count MPV Sodium 136 Potassium 4.8 Chloride 100 Carbon Dioxide 26 Anion Gap 9 BUN 15 Creatinine 0.8 Creat Clearance w eGFR > 60 Random Glucose 76 Calcium 9.4 Total Bilirubin 0.7 AST 41 H ALT 43 Alkaline Phosphatase 95 Total Protein 8.2 Albumin 4.2 Urine Color Urine Appearance Urine pH Ur Specific [place] Urine Protein Urine Glucose (UA) Urine Ketones Urine Blood Urine Nitrite Urine Bilirubin Urine Urobilinogen Ur Leukocyte Esterase Urine WBC (Auto) Urine RBC (Auto) Ur Epithelial Cells Urine Bacteria Urine Mucus RPR Titer Nonreactive HIV 1&2 Antibody Screen HIV P24 Antigen LABS NOTED. Assessment: 10/08/18 18:59 WITHDRAWAL SYMPTOMS. Plan: CONTINUE DETOX. INCREASE DAILY PO FLUID INTAKE. PRN ZOFRAN SL FOR NAUSEA. PRN IMMODIUM FOR DIARRHEA.
[2018-10-09] MEDS ORDERED: diazePAM 5 MG TABLET PO SCH (10:00)
[2018-10-09] MEDS ORDERED: METHADONE HCL 5 MG TABLET (FOR DETOX USE ONLY) PO SCH (10:00)
[2018-10-11] MEDS ORDERED: diazePAM 5 MG TABLET PO SCH (10:00)
[2018-10-11] MEDS ORDERED: METHADONE HCL 10 MG TABLET (FOR DETOX USE ONLY) PO SCH (10:00)
[2018-10-12] MEDS ORDERED: METHADONE HCL 5 MG TABLET (FOR DETOX USE ONLY) PO SCH (06:00)
== END 2018-10-08 17:30 | disposition left against medical advice (07) | DRG 770 ==
LOC: YASAS 08:45 → Y6N 11:16
PROC: HZ2ZZZZ Detoxification Services for Substance Abuse Treatment (ICD-10-PCS; principal; 2018-10-07)
DX: F11.23 Opioid dependence with withdrawal (principal); F10.230 Alcohol dependence with withdrawal, uncomplicated; F14.20 Cocaine dependence, uncomplicated; F31.9 Bipolar disorder, unspecified; F43.10 Post-traumatic stress disorder, unspecified; B18.2 Chronic viral hepatitis C; J45.909 Unspecified asthma, uncomplicated; G40.909 Epilepsy, unspecified, not intractable, without status epilepticus; Z88.0 Allergy status to penicillin; Z88.5 Allergy status to narcotic agent
CPT/HCPCS: 36415; 80053; 81003; 81015; 85027; 86593; 87389; 90688; G0008

== ENCOUNTER 2019-01-03 08:14 | Inpatient (IN) | payer OTHER ==
--- NOTE | 2019-01-03 08:47 | HP ---
COWS - Scale Resting Pulse: 2= [place] 101-120 Sweatin= Chills/Flushing Restless Observation: 1= Difficult to Sit Still Pupil Size: 1= Pupils >than Normal Bone or Joint Aches: 2= Severe Diffuse Aches Runny Nose/ Eye Tearin= Runny Nose/Eyes GI Upset > 30mins: 2= Nausea/Diarrhea Tremor Observation: 2= Slight Tremor Visible Yawning Observation: 2= >3x During Session Anxiety or Irritability: 2=Irritable/Anxious Goose Flesh Skin: 0=Smooth Skin COWS Score: 17 CIWA Score Nausea/Vomitin Muscle Tremors: 2 Anxiety: 2 Agitation: 2 Paroxysmal Sweats: 1-Minimal Palms Moist Orientation: 0-Oriented Tacttile Disturbances: 1-Very Mild Itch/Numbness Auditory Disturbances: 1-Very Mild Visual Disturbances: 0-None Headache: 2-Mild CIWA-Ar Total Score: 13 - Admission Criteria [facility] Guidelines: Admission for Medically Managed Detox: Requires at least one of the followin. CIWA greater than 12 2. Seizures within the past 24 hours 3. Delirium tremens within the past 24 hours 4. Hallucinations within the past 24 hours 5. Acute intervention needed for co occurring medical disorder 6. Acute intervention needed for co occurring psychiatric disorder 7. Severe withdrawal that cannot be handled at a lower level of care (continued vomiting, continued diarrhea, abnormal vital signs) requiring intravenous medication and/or fluids 8. Admission ROS S - [facility] Chief Complaint: i need help to stop using heroin,alcohol,cocaine,marijuana and street methadone Allergies/Adverse Reactions: Allergies Allergy/AdvReac Type Severity Reaction Status Date / Time buprenorphine [From Suboxone] Allergy Severe Hives Verified 01/03/19 08:29 naloxone [From Suboxone] Allergy Severe Hives Verified 01/03/19 08:29 Penicillins Allergy Severe unknown Verified 01/03/19 08:29 History of Present Illness: tis 33years old female with heroin,alcohol,cocaine,marijuana and street methadone,seeking detox,withdrawal symptom' but keep relapsing hepatitis c dvt left leg dx on 01/01/19 on xarelto 15 mgs po daily nicotine dependence 1 pack/day,like to have nicotine patch and gum weight loss bipolar disorder on meds longest sobriety for 3 years plan to go to rehab also has asthma Exam Limitations: No Limitations - Ebola screening Have you traveled outside of the country in the last 21 days: No Have you had contact with anyone from an Ebola affected area: No Do you have a fever: No - Review of Systems Constitutional: Chills, Loss of Appetite, Malaise, Night Sweats, Changes in sleep, Weakness, Unintentional Wgt. Loss EENT: reports: Tearing, Nose Congestion Respiratory: reports: No Symptoms reported, Other (asthma) Cardiac: reports: Palpitations GI: reports: Nausea, Poor Appetite, Abdominal cramping : reports: No Symptoms Reported Musculoskeletal: reports: Back Pain, Muscle Pain, Other (left led pain) Integumentary: reports: Dryness Neuro: reports: Headache, Tremors, Other (seizure) Endocrine: reports: No Symptoms Reported Hematology: reports: No Symptoms Reported Psychiatric: reports: No Sypmtoms Reported, Judgement Intact, Mood/Affect Appropiate, Orientated x3, other (bipolar disorder) Patient History - Patient Medical History Hx Anemia: No Hx Asthma: Yes (on albuterol inhaler and nebulizer) Hx Chronic Obstructive Pulmonary Disease (COPD): No Hx Cancer: No Hx Cardiac Disorders: No Hx Congestive Heart Failure: No Hx Hypertension: No Hx Hypercholesterolemia: No Hx Pacemaker: No HX Cerebrovascular Accident: No Hx Seizures: Yes (last episode was in 04/2018) Hx Dementia: No Hx Diabetes: No Hx Gastrointestinal Disorders: No Hx Liver Disease: Yes (Hep C ) Hx Genitourinary Disorders: No Hx Sexually Transmitted Disorders: No Hx Renal Disease (ESRD): No Hx Thyroid Disease: No Hx Human Immunodeficiency Virus (HIV): No (LAST 07/22 negative) Hx Hepatitis C: Yes (not treated) Hx Depression: Yes Hx Suicide Attempt: No Hx Bipolar Disorder: Yes (on med) Hx Schizophrenia: No Other Medical History: no suicidal,no homicidal,dvt left leg - Patient Surgical History Past Surgical History: Yes Hx Neurologic Surgery: No Hx Cataract Extraction: No Hx Cardiac Surgery: No Hx Lung Surgery: No Hx Breast Surgery: No Hx Breast Biopsy: No Hx Abdominal Surgery: No Hx Appendectomy: No Hx Cholecystectomy: No Hx Genitourinary Surgery: No Hx Section: No Hx Orthopedic Surgery: No Hx Hysterectomy: No Other Surgical History: TUBAL LIGATION 2010 Anesthesia Reaction: No - PPD History Previous Implant?: Yes Documented Results: Negative w/o proof Implanted On Prior R Admission?: Yes Date: 08/03/17 Results: 0 mm PPD to be Administered?: Yes - Reproductive History Patient is a Female of Child Bearing Age (11 -55 yrs old): Yes Last Menstrual Period: 12/27/18 Patient : No - Smoking Cessation Smoking history: Current every day smoker Have you smoked in the past 12 months: Yes Aproximately how many cigarettes per day: 20 Cigars Per Day: 0 Hx Chewing Tobacco Use: No Initiated information on smoking cessation: Yes 'Breaking Loose' booklet given: 01/03/19 - Substance & Tx. History Hx Alcohol Use: Yes Hx Substance Use: Yes Substance Use Type: Alcohol, Cocaine, Heroin, Marijuana, Opiates Hx Substance Use Treatment: Yes ([facility] 10/05/18 to 10/08/18) - Substances abused Heroin Substance route: Injection Frequency: Daily Amount used: 10 bags Age of first use: 22 Date of last use: 01/02/19 Alcohol Substance route: Oral Frequency: Daily Amount used: 2 pints of vodka Age of first use: 15 Date of last use: 01/02/19 Cocaine Substance route: Smoking Frequency: 1-2 times per week Amount used: 50$ Age of first use: 16 Date of last use: 01/02/19 Marijuana/Hashish Substance route: Smoking Frequency: Daily Amount used: 1 joint Age of first use: 14 Date of last use: 01/03/19 Non-Rx Methadone Other (specify): street methadone Substance route: Oral Frequency: 1-2 times per week Amount used: 40 mgs to 60 mgs Age of first use: 22 Date of last use: 01/02/19 Family Disease History - Family Disease History Family Disease History: Other: Father (ALCOHOL,sober), Mother (ALCOHOL,MANIC DEPRESSIVE), Sister (DSA) Admission Physical Exam BHS - Vital Signs Vital Signs: Vital Signs Temperature 98.6 F 01/03/19 08:37 Pulse Rate 108 H 01/03/19 08:37 Respiratory Rate 18 01/03/19 08:37 Blood Pressure 124/76 01/03/19 08:37 O2 Sat by Pulse Oximetry (%) - Physical General Appearance: Yes: Moderate Distress, Tremorous, Irritable, Sweating, Anxious HEENTM: Yes: Normal ENT Inspection, Normocephalic, Normal Voice, ELIZABETH Respiratory: Yes: Lungs Clear, Normal Breath Sounds, No Respiratory Distress Neck: Yes: Within Normal Limits, Supple, Trachea in good position Breast: Yes: Breast Exam Deferred Cardiology: Yes: Tachycardia Abdominal: Yes: Within Normal Limits, Normal Bowel Sounds, Non Tender, Flat, Soft Genitourinary: Yes: Within Normal Limits Back: Yes: Muscle Spasm Musculoskeletal: Yes: full range of Motion, Back pain, Muscle Pain Extremities: Yes: Tremors, Other (left leg swelling ,history of dvt) Neurological: Yes: supervisor landscape II-XII NML intact, Fully Oriented, Alert, Motor Strength 5/5 Integumentary: Yes: Dry, Track Muhammad Lymphatic: Yes: Within Normal Limits - Diagnostic (1) Opioid dependence with withdrawal Current Visit: No Status: Acute (2) Left leg DVT Current Visit: Yes Status: Acute (3) Alcohol dependence with uncomplicated withdrawal Current Visit: No Status: Acute (4) IVDU (intravenous drug user) Current Visit: No Status: Acute (5) Weight decreased Current Visit: No Status: Acute (6) Hepatitis C Current Visit: No Status: Chronic Qualifiers: Viral hepatitis chronicity: chronic Hepatic coma status: without hepatic coma Qualified Code(s): B18.2 - Chronic viral hepatitis C (7) Seizure Current Visit: No Status: Chronic Qualifiers: Convulsion type: unspecified Qualified Code(s): R56.9 - Unspecified convulsions (8) Bipolar disorder Current Visit: Yes Status: Chronic (9) Cannabis dependence Current Visit: Yes Status: Acute (10) Cocaine dependence Current Visit: No Status: Chronic Qualifiers: Substance use status: uncomplicated Qualified Code(s): F14.20 - Cocaine dependence, uncomplicated Cleared for Admission [facility] - Detox or Rehab [facility] Level of Care: Medically Managed Detox Regimen/Protocol: Methadone/Valium Inpatient Rehab Admission - Rehab Decision to Admit Inpatient rehab admission?: No
[2019-01-03] MEDS ORDERED: IBUPROFEN 400 MG TABLET (FP) PO PRN (09:19)
[2019-01-03] MEDS ORDERED: MENTHOL/PHENOL 1 EACH UD MM PRN (09:19)
[2019-01-03] MEDS ORDERED: MELATONIN 5 MG TABLETS PO PRN (09:19)
[2019-01-03] MEDS ORDERED: cloNIDine HCL 0.1 MG TABLET PO PRN (09:19)
[2019-01-03] MEDS ORDERED: ACETAMINOPHEN 325 MG TABLET (FP) PO PRN ×2 (09:19)
[2019-01-03] MEDS ORDERED: BISMUTH SUBSALICYLATE 262 MG/15 ML BTL PO PRN (09:19)
[2019-01-03] MEDS ORDERED: MAG HYDROX/AL HYDROX/SIMETH 30 ML UNIT-DOSE CUP PO PRN (09:19)
[2019-01-03] MEDS ORDERED: MAGNESIUM CITRATE 300 ML BOTTLE PO PRN (09:19)
[2019-01-03] MEDS ORDERED: MAGNESIUM HYDROX 2400MG/30ML ORAL SUSPENSION 30 ML CUP PO PRN (09:19)
[2019-01-03] MEDS ORDERED: hydrOXYzine PAMOATE 25 MG CAPSULE (FP) PO PRN (09:19)
[2019-01-03] MEDS ORDERED: ALBUTEROL SO4 8 GM HFA INHALER IH PRN (09:24)
[2019-01-03] MEDS: levETIRAcetam 500 MG TABLET (FP) PO SCH ×2 (11:02→22:43)
[2019-01-03] MEDS: diazePAM 5 MG TABLET PO PRN ×2 (11:05→17:50)
[2019-01-03] MEDS ORDERED: METHADONE HCL 10 MG TABLET (FOR DETOX USE ONLY) PO ONE ×2 (11:35→23:00)
[2019-01-03] MEDS: PRENATAL VITAMINS W/ FOLIC ACID TABLET (FP) PO SCH (11:48)
[2019-01-03] MEDS: NICOTINE 21 MG/24 HOURS TOPICAL PATCH TD SCH (11:48)
[2019-01-03] MEDS: METHOCARBAMOL 500 MG TABLET PO PRN ×2 (12:20→22:43)
[2019-01-03] MEDS: diazePAM 5 MG TABLET PO SCH ×2 (13:43→22:44)
[2019-01-03 14:22] LABS: HEMOGLOBIN 13.8 GM/dL (10.7-15.3); MCH 29.5 pg (25.7-33.7); MCHC 32.2 g/dl (32.0-36.0); MEAN CELL VOLUME 91.6 fl (80-96); PLATELET COUNT 551 K/MM3 (134-434); RBC 4.69 M/mm3 (3.60-5.2); RDW 16.1 % (11.6-15.6); WHITE BLOOD COUNT 8.5 K/mm3 (4.0-10.0)
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
[2019-01-03 14:37] LABS: ALBUMIN 3.8 g/dl (3.4-5.0); ALK PHOS 90 U/L (45-117); ANION GAP 5 MMOL/L (8-16); BILIRUBIN,TOTAL 0.2 mg/dL (0.2-1); BLOOD UREA NITROGEN 16 mg/dL (7-18); CALCIUM 9.5 mg/dL (8.5-10.1); CHLORIDE 104 mmol/L (98-107); CO2 27 mmol/L (21-32); CREATININE 0.8 mg/dL (0.55-1.3); GLUCOSE,RANDOM 83 mg/dL (74-106); POTASSIUM 4.6 mmol/L (3.5-5.1); SGOT/AST 48 U/L (15-37); SGPT/ALT 60 U/L (13-61); SODIUM 137 mmol/L (136-145); TOT PROT 7.6 g/dl (6.4-8.2)
[2019-01-03 15:06] LABS: EPI CELLS 16.5 /HPF (0-5); URINE APPEARANCE CLEAR; URINE BACTERIA 134.3 /hpf (NEGATIVE); URINE BILIRUBIN NEGATIVE (NEGATIVE); URINE CASTS 1 /hpf (0-8); URINE COLOR YELLOW; URINE GLUCOSE (UA) NEGATIVE (NEGATIVE); URINE KETONE TRACE (NEGATIVE); URINE LEUK ESTERASE NEGATIVE (NEGATIVE); URINE NITRITE NEGATIVE (NEGATIVE); URINE PROTEIN NEGATIVE (NEGATIVE); URINE RBC 8 /hpf (0-4); URINE UROBILINOGEN 0.2 mg/dL (0.2-1.0); URINE WBC 4 /hpf (0-5)
[2019-01-03] MEDS: RIVAROXABAN 15 MG TABLET PO SCH (17:36)
[2019-01-03] MEDS: NICOTINE POLACRILEX 2 MG GUM BUC PRN (20:45)
[2019-01-03] MEDS: traZODone HCL 100 MG TABLET (FP) PO SCH (22:43)
[2019-01-03] MEDS: THIAMINE HCL 100 MG TABLET (FP) PO SCH (22:43)
[2019-01-04] MEDS: diazePAM 5 MG TABLET PO SCH ×3 (05:25→21:59)
[2019-01-04] MEDS ORDERED: METHADONE HCL 10 MG TABLET (FOR DETOX USE ONLY) PO ONE (10:00)
[2019-01-04] MEDS: PRENATAL VITAMINS W/ FOLIC ACID TABLET (FP) PO SCH (10:19)
[2019-01-04] MEDS: levETIRAcetam 500 MG TABLET (FP) PO SCH ×2 (10:19→21:59)
[2019-01-04] MEDS: NICOTINE POLACRILEX 2 MG GUM BUC PRN ×2 (10:20→16:15)
[2019-01-04] MEDS: NICOTINE 21 MG/24 HOURS TOPICAL PATCH TD SCH (10:21)
--- NOTE | 2019-01-04 10:46 | PN ---
[facility] CIWA - CIWA Score Nausea/Vomitin-No Nausea/No Vomiting Muscle Tremors: 3 Anxiety: 3 Agitation: 3 Paroxysmal Sweats: 3 Orientation: 0-Oriented Tacttile Disturbances: 0-None Auditory Disturbances: 0-None Visual Disturbances: 0-None Headache: 0-None Present CIWA-Ar Total Score: 12 BHS COWS - Scale Resting Pulse: 1= [place] 81-100 Sweatin=Flushed/Facial Moisture Restless Observation: 1= Difficult to Sit Still Pupil Size: 0= Normal to Room Light Bone or Joint Aches: 1= Mild Discomfort Runny Nose/ Eye Tearin= Runny Nose/Eyes GI Upset > 30mins: 0= None Tremor Observation of Outstretched Hands: 2= Slight Tremor Visible Yawning Observation: 2= >3x During Session Anxiety or Irritability: 2=Irritable/Anxious Goose Flesh Skin: 0=Smooth Skin COWS Score: 13 S Progress Note (SOAP) Subjective: sweats shakes body aches interrupted sleep Objective: 01/04/19 10:53 Vital Signs Temperature 97.7 F 01/04/19 09:44 Pulse Rate 76 01/04/19 09:44 Respiratory Rate 16 01/04/19 09:44 Blood Pressure 111/62 01/04/19 09:44 O2 Sat by Pulse Oximetry (%) Laboratory Tests 01/03/19 01/03/19 01/03/19 11:20 12:00 12:00 WBC 8.5 RBC 4.69 Hgb 13.8 Hct 43.0 MCV 91.6 MCH 29.5 MCHC 32.2 RDW 16.1 H Plt Count 551 H MPV 9.0 Sodium 137 Potassium 4.6 Chloride 104 Carbon Dioxide 27 Anion Gap 5 L BUN 16 Creatinine 0.8 Creat Clearance w eGFR 83.12 Random Glucose 83 Calcium 9.5 Total Bilirubin 0.2 AST 48 H ALT 60 Alkaline Phosphatase 90 Total Protein 7.6 Albumin 3.8 Urine Color Yellow Urine Appearance Clear Urine pH 5.0 Ur Specific [place] 1.024 Urine Protein Negative Urine Glucose (UA) Negative Urine Ketones Trace H Urine Blood Trace Urine Nitrite Negative Urine Bilirubin Negative Urine Urobilinogen 0.2 Ur Leukocyte Esterase Negative Urine WBC (Auto) 4 Urine RBC (Auto) 8 Urine Casts (Auto) 1 U Epithel Cells (Auto) 16.5 Urine Bacteria (Auto) 134.3 aaox3 ambulating no acute distress repeat u/a Assessment: 01/04/19 10:54 withdrawal sx Plan: continue detox increase fluids repeat u/a
[2019-01-04] MEDS: diazePAM 5 MG TABLET PO PRN (16:39)
[2019-01-04] MEDS: RIVAROXABAN 15 MG TABLET PO SCH (17:15)
[2019-01-04] MEDS: traZODone HCL 100 MG TABLET (FP) PO SCH (21:58)
[2019-01-04] MEDS: THIAMINE HCL 100 MG TABLET (FP) PO SCH (21:58)
[2019-01-04] MEDS ORDERED: QUEtiapine FUMARATE 200 MG TABLET PO SCH (22:00)
[2019-01-05] MEDS ORDERED: diazePAM 5 MG TABLET PO ONE (06:00)
[2019-01-05] MEDS ORDERED: METHADONE HCL 10 MG TABLET (FOR DETOX USE ONLY) PO ONE (10:00)
[2019-01-05] MEDS: NICOTINE 21 MG/24 HOURS TOPICAL PATCH TD SCH (10:12)
[2019-01-05] MEDS: PRENATAL VITAMINS W/ FOLIC ACID TABLET (FP) PO SCH (10:12)
[2019-01-05] MEDS: levETIRAcetam 500 MG TABLET (FP) PO SCH (10:12)
[2019-01-05] MEDS: NICOTINE POLACRILEX 2 MG GUM BUC PRN (10:14)
--- NOTE | 2019-01-05 10:52 | PN ---
[facility] CIWA - CIWA Score Nausea/Vomitin-No Nausea/No Vomiting Muscle Tremors: 3 Anxiety: 3 Agitation: 3 Paroxysmal Sweats: 2 Orientation: 0-Oriented Tacttile Disturbances: 0-None Auditory Disturbances: 0-None Visual Disturbances: 0-None Headache: 0-None Present CIWA-Ar Total Score: 11 BHS COWS - Scale Resting Pulse: 1= [place] 81-100 Sweatin=Flushed/Facial Moisture Restless Observation: 0= Sits Still Pupil Size: 0= Normal to Room Light Bone or Joint Aches: 2= Severe Diffuse Aches Runny Nose/ Eye Tearin= Nasal Congestion GI Upset > 30mins: 1= Stomach Cramp Tremor Observation of Outstretched Hands: 1= Tremor [place], Not Seen Yawning Observation: 1= 1-2x During Session Anxiety or Irritability: 1=Feels Anxious/Irritable Goose Flesh Skin: 0=Smooth Skin COWS Score: 10 S Progress Note (SOAP) Subjective: stomach cramp sweats some shakes interrupted sleep body aches anxiety Objective: 01/05/19 10:52 Vital Signs Temperature 97.7 F 01/05/19 09:19 Pulse Rate 99 H 01/05/19 09:19 Respiratory Rate 16 01/05/19 09:19 Blood Pressure 103/62 01/05/19 09:19 O2 Sat by Pulse Oximetry (%) Laboratory Tests 01/03/19 01/03/19 01/03/19 11:20 12:00 12:00 WBC 8.5 RBC 4.69 Hgb 13.8 Hct 43.0 MCV 91.6 MCH 29.5 MCHC 32.2 RDW 16.1 H Plt Count 551 H MPV 9.0 Sodium 137 Potassium 4.6 Chloride 104 Carbon Dioxide 27 Anion Gap 5 L BUN 16 Creatinine 0.8 Creat Clearance w eGFR 83.12 Random Glucose 83 Calcium 9.5 Total Bilirubin 0.2 AST 48 H ALT 60 Alkaline Phosphatase 90 Total Protein 7.6 Albumin 3.8 Urine Color Yellow Urine Appearance Clear Urine pH 5.0 Ur Specific [place] 1.024 Urine Protein Negative Urine Glucose (UA) Negative Urine Ketones Trace H Urine Blood Trace Urine Nitrite Negative Urine Bilirubin Negative Urine Urobilinogen 0.2 Ur Leukocyte Esterase Negative Urine WBC (Auto) 4 Urine RBC (Auto) 8 Urine Casts (Auto) 1 U Epithel Cells (Auto) 16.5 Urine Bacteria (Auto) 134.3 RPR Titer 01/03/19 12:00 WBC RBC Hgb Hct MCV MCH MCHC RDW Plt Count MPV Sodium Potassium Chloride Carbon Dioxide Anion Gap BUN Creatinine Creat Clearance w eGFR Random Glucose Calcium Total Bilirubin AST ALT Alkaline Phosphatase Total Protein Albumin Urine Color Urine Appearance Urine pH Ur Specific [place] Urine Protein Urine Glucose (UA) Urine Ketones Urine Blood Urine Nitrite Urine Bilirubin Urine Urobilinogen Ur Leukocyte Esterase Urine WBC (Auto) Urine RBC (Auto) Urine Casts (Auto) U Epithel Cells (Auto) Urine Bacteria (Auto) RPR Titer Nonreactive aaox3 ambulating no acute distress Assessment: 01/05/19 10:52 withdrawal sx Plan: continue detox increase fluids pepto prm bently prn
[2019-01-05] MEDS ORDERED: DICYCLOMINE HCL 10 MG CAPSULE PO PRN (10:53)
[2019-01-05] MEDS: RIVAROXABAN 15 MG TABLET PO SCH (17:19)
[2019-01-05 17:45] VITALS: BP 107/55; PULSE 81; TEMP 97.8
--- NOTE | 2019-01-05 18:01 | DS ---
[facility] Detox Discharge Summary Admission Date: 01/03/19 Discharge Date: 01/05/19 - History Present History: Alcohol Dependence, Opioid Dependence Pertinent Past History: Leaving AMA. Pt admitted for detox from heroin,alcohol,cocaine,marijuana and street methadone. Pt came in 2 days ago on 01/03/19_ signing out AMA today. d/w pt at length about the risk for relapse. d/w options for methadone based treatment at [place] or [place]. - Physical Exam Results Vital Signs: Vital Signs Temperature 97.8 F 01/05/19 17:45 Pulse Rate 81 01/05/19 17:45 Respiratory Rate 18 01/05/19 17:45 Blood Pressure 107/55 L 01/05/19 17:45 O2 Sat by Pulse Oximetry (%) - Medication Discharge Medications: Ambulatory Orders Quetiapine Fumarate [Seroquel -] 300 mg PO BID #60 tablet 09/16/17 levETIRAcetam [Keppra -] 500 mg PO BID #90 tablet 09/18/17 Albuterol Sulfate Inhaler - [Ventolin HFA Inhaler -] 2 puff IH Q4H PRN #1 inhaler 09/19/17 Rivaroxaban [Xarelto] 15 mg PO DAILY 01/03/19 traZODone HCL [Desyrel -] 100 mg PO HS 01/03/19 - Diagnosis (1) IVDU (intravenous drug user) Current Visit: No Status: Acute (2) Opioid dependence with withdrawal Current Visit: No Status: Acute (3) Alcohol dependence Current Visit: No Status: Chronic Qualifiers: Substance use status: uncomplicated Qualified Code(s): F10.20 - Alcohol dependence, uncomplicated (4) Cocaine dependence Current Visit: No Status: Chronic Qualifiers: Substance use status: uncomplicated Qualified Code(s): F14.20 - Cocaine dependence, uncomplicated - AMA Did Patient Leave Against Medical Advice: Yes
[2019-01-06] MEDS ORDERED: METHADONE HCL 10 MG TABLET (FOR DETOX USE ONLY) PO ONE (10:00)
[2019-01-07] MEDS ORDERED: METHADONE HCL 5 MG TABLET (FOR DETOX USE ONLY) PO ONE (06:00)
== END 2019-01-05 18:04 | disposition left against medical advice (07) | DRG 770 ==
LOC: YASAS 08:14 → Y6N 09:47
PROVIDERS: ADMIT Surgery; ATTEND Surgery
PROC: HZ2ZZZZ Detoxification Services for Substance Abuse Treatment (ICD-10-PCS; principal; 2019-01-03)
DX: F11.23 Opioid dependence with withdrawal (principal); F10.230 Alcohol dependence with withdrawal, uncomplicated; F14.20 Cocaine dependence, uncomplicated; F12.20 Cannabis dependence, uncomplicated; F17.210 Nicotine dependence, cigarettes, uncomplicated; F31.9 Bipolar disorder, unspecified; F43.10 Post-traumatic stress disorder, unspecified; F19.24 Other psychoactive substance dependence with psychoactive substance-induced mood disorder; F19.282 Other psychoactive substance dependence with psychoactive substance-induced sleep disorder; R00.0 Tachycardia, unspecified; B18.2 Chronic viral hepatitis C; J45.909 Unspecified asthma, uncomplicated; G40.909 Epilepsy, unspecified, not intractable, without status epilepticus; R63.4 Abnormal weight loss; Z86.718 Personal history of other venous thrombosis and embolism; Z79.01 Long term (current) use of anticoagulants; Z88.0 Allergy status to penicillin; Z88.5 Allergy status to narcotic agent
CPT/HCPCS: 36415; 80053; 81003; 85027; 86593

== ENCOUNTER 2019-02-16 08:41 | Inpatient (IN) | payer OTHER ==
[2019-02-16 09:27] VITALS: BMI 21.4
--- NOTE | 2019-02-16 10:05 | HP ---
COWS - Scale Resting Pulse: 1= [place] 81-100 Sweatin= Chills/Flushing Restless Observation: 1= Difficult to Sit Still Pupil Size: 1= Pupils >than Normal Bone or Joint Aches: 2= Severe Diffuse Aches Runny Nose/ Eye Tearin= Runny Nose/Eyes GI Upset > 30mins: 2= Nausea/Diarrhea Tremor Observation: 2= Slight Tremor Visible Yawning Observation: 1= 1-2x During Session Anxiety or Irritability: 2=Irritable/Anxious Goose Flesh Skin: 0=Smooth Skin COWS Score: 15 CIWA Score Nausea/Vomitin Muscle Tremors: 2 Anxiety: 2 Agitation: 2 Paroxysmal Sweats: 1-Minimal Palms Moist Orientation: 0-Oriented Tacttile Disturbances: 1-Very Mild Itch/Numbness Auditory Disturbances: 1-Very Mild Visual Disturbances: 0-None Headache: 2-Mild CIWA-Ar Total Score: 13 - Admission Criteria [facility]ASAS Guidelines: Admission for Medically Managed Detox: Requires at least one of the followin. CIWA greater than 12 2. Seizures within the past 24 hours 3. Delirium tremens within the past 24 hours 4. Hallucinations within the past 24 hours 5. Acute intervention needed for co occurring medical disorder 6. Acute intervention needed for co occurring psychiatric disorder 7. Severe withdrawal that cannot be handled at a lower level of care (continued vomiting, continued diarrhea, abnormal vital signs) requiring intravenous medication and/or fluids 8. Admission ROS [facility] Chief Complaint: i need help to stop using heroin,alcohol,cocaine,marijuana Allergies/Adverse Reactions: Allergies Allergy/AdvReac Type Severity Reaction Status Date / Time buprenorphine [From Suboxone] Allergy Severe Hives Verified 02/16/19 09:18 naloxone [From Suboxone] Allergy Severe Hives Verified 02/16/19 09:18 Penicillins Allergy Severe unknown Verified 02/16/19 09:18 History of Present Illness: this 33 years old female with heroin,alcohol,cocaine,marijuana dependence seeking detox,withdrawal symptom multiple admissions in detox but keep relapsing last admission in [facility] 01/03/19 to 01/05/19 not completed due to family emergency weight loss nicotine dependence 1 pack/day,would like the patch and gum hepatitis c no treatment dvt of left leg on xarelto tubal ligation in 2006 carcinoma in situ s/p conization in 2004 longest period of sobriety 2 year plan for rehab after detox Exam Limitations: No Limitations - Ebola screening Have you traveled outside of the country in the last 21 days: No (N) Have you had contact with anyone from an Ebola affected area: No Do you have a fever: No - Review of Systems Constitutional: Chills, Loss of Appetite, Malaise, Night Sweats, Changes in sleep, Weakness, Unintentional Wgt. Loss EENT: reports: Tearing, Nose Congestion Respiratory: reports: No Symptoms reported Cardiac: reports: No Symptoms Reported GI: reports: Nausea, Poor Appetite, Abdominal cramping : reports: No Symptoms Reported Musculoskeletal: reports: Back Pain, Joint Pain, Muscle Pain, Joint Stiffness, Other (dvt of left leg) Integumentary: reports: Dryness Neuro: reports: Headache, Tremors Endocrine: reports: No Symptoms Reported Hematology: reports: No Symptoms Reported Psychiatric: reports: No Sypmtoms Reported, Judgement Intact, Mood/Affect Appropiate, Orientated x3, other (insomnia,anxiety and depression) Patient History - Patient Medical History Hx Anemia: No Hx Asthma: Yes (on albuterol inhaler and nebulizer) Hx Chronic Obstructive Pulmonary Disease (COPD): No Hx Cancer: No Hx Cardiac Disorders: No Hx Congestive Heart Failure: No Hx Hypertension: No Hx Hypercholesterolemia: No Hx Pacemaker: No HX Cerebrovascular Accident: No Hx Seizures: Yes (last episode was in 04/2018) Hx Dementia: No Hx Diabetes: No Hx Gastrointestinal Disorders: No Hx Liver Disease: Yes (Hep C ) Hx Genitourinary Disorders: No Hx Sexually Transmitted Disorders: No Hx Renal Disease (ESRD): No Hx Thyroid Disease: No Hx Human Immunodeficiency Virus (HIV): No (LAST 07/22 negative) Hx Hepatitis C: Yes (not treated) Hx Depression: Yes Hx Suicide Attempt: No Hx Bipolar Disorder: Yes (on med) Hx Schizophrenia: No Other Medical History: no suicidal,no homicidal - Patient Surgical History Past Surgical History: Yes Hx Neurologic Surgery: No Hx Cataract Extraction: No Hx Cardiac Surgery: No Hx Lung Surgery: No Hx Breast Surgery: No Hx Breast Biopsy: No Hx Abdominal Surgery: No Hx Appendectomy: No Hx Cholecystectomy: No Hx Genitourinary Surgery: No Hx Section: No Hx Orthopedic Surgery: No Hx Hysterectomy: No Other Surgical History: TUBAL LIGATION 2010 Anesthesia Reaction: No - PPD History Previous Implant?: Yes Documented Results: Negative w/proof Implanted On Prior [facility] Admission?: Yes Date: 01/05/19 Results: 0 mm PPD to be Administered?: No - Reproductive History Patient is a Female of Child Bearing Age (11 -55 yrs old): Yes Last Menstrual Period: 01/27/19 Patient : No - Smoking Cessation Smoking history: Current every day smoker Have you smoked in the past 12 months: Yes Aproximately how many cigarettes per day: 20 Cigars Per Day: 0 Hx Chewing Tobacco Use: No Initiated information on smoking cessation: Yes 'Breaking Loose' booklet given: 02/16/19 - Substance & Tx. History Hx Alcohol Use: Yes Hx Substance Use: Yes Substance Use Type: Alcohol, Cocaine, Heroin, Marijuana Hx Substance Use Treatment: Yes ([facility] 01/03/19 to 01/05/19) - Substances abused Heroin Substance route: Injection Frequency: Daily Amount used: 10 bags Age of first use: 22 Date of last use: 02/15/19 Alcohol Substance route: Oral Frequency: Daily Amount used: 2 pints of vodka Age of first use: 15 Date of last use: 02/15/19 Cocaine Substance route: Smoking Frequency: 1-2 times per week Amount used: 50$ Age of first use: 16 Date of last use: 02/14/19 Marijuana/Hashish Substance route: Smoking Frequency: Daily Amount used: 1 joint Age of first use: 14 Date of last use: 02/14/19 Non-Rx Methadone Other (specify): street methadone Substance route: Oral Frequency: 1-2 times per week Amount used: 40 mgs to 60 mgs Age of first use: 22 Date of last use: 02/13/19 Family Disease History - Family Disease History Family Disease History: Other: Father (ALCOHOL,sober), Mother (ALCOHOL,MANIC DEPRESSIVE), Sister (DSA) Admission Physical Exam [facility] - Vital Signs Vital Signs: Vital Signs - 24 hr 02/16/19 09:18 Temperature 97.1 F L Pulse Rate 88 Respiratory 16 Rate Blood Pressure 129/89 - Physical General Appearance: Yes: Moderate Distress, Tremorous, Irritable, Sweating, Anxious HEENTM: Yes: Normal ENT Inspection, ELIZABETH, Pharynx Normal Respiratory: Yes: Lungs Clear, Normal Breath Sounds, No Respiratory Distress Neck: Yes: Within Normal Limits, Supple, Trachea in good position Breast: Yes: Breast Exam Deferred Cardiology: Yes: Within Normal Limits, Regular Rhythm, Regular Rate, S1, S2 Abdominal: Yes: Within Normal Limits, Normal Bowel Sounds, Non Tender, Flat, Soft Genitourinary: Yes: Within Normal Limits Back: Yes: Muscle Spasm Musculoskeletal: Yes: Back pain, Joint Stiffness, Muscle Pain Extremities: Yes: Within Normal Limits, Normal Range of Motion, Tremors 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 intact, Fully Oriented, Alert, Motor Strength 5/5 Integumentary: Yes: Dry, Track Muhammad (cellulitis of right forearm) Lymphatic: Yes: Other - Diagnostic (1) Opioid dependence with withdrawal Current Visit: Yes Status: Acute (2) Alcohol dependence with uncomplicated withdrawal Current Visit: Yes Status: Acute (3) Cannabis dependence Current Visit: Yes Status: Chronic (4) Cocaine dependence Current Visit: Yes Status: Chronic Qualifiers: Substance use status: uncomplicated Qualified Code(s): F14.20 - Cocaine dependence, uncomplicated (5) IVDU (intravenous drug user) Current Visit: No Status: Acute (6) Left leg DVT Current Visit: No Status: Acute (7) Syncope Current Visit: No Status: Acute (8) Weight decreased Current Visit: No Status: Acute (9) GERD (gastroesophageal reflux disease) Current Visit: No Status: Chronic Qualifiers: Esophagitis presence: without esophagitis Qualified Code(s): K21.9 - Gastro -esophageal reflux disease without esophagitis (10) Hepatitis C Current Visit: No Status: Chronic Qualifiers: Viral hepatitis chronicity: chronic Hepatic coma status: without hepatic coma Qualified Code(s): B18.2 - Chronic viral hepatitis C (11) Seizure Current Visit: No Status: Chronic Qualifiers: Convulsion type: unspecified Qualified Code(s): R56.9 - Unspecified convulsions (12) Cellulitis of arm Current Visit: No Status: Resolved Qualifiers: Laterality: unspecified laterality Qualified Code(s): L03.119 - Cellulitis of unspecified part of limb (13) Bronchial asthma Current Visit: No Status: Chronic Cleared for Admission S - Detox or Rehab [facility] Level of Care: Medically Managed Detox Regimen/Protocol: Methadone/Valium Breathalyzer - Breathalyzer Breathalyzer: 0 POC Urine test - Test device test lot number: [id number] Expiration date: 06/04/20 - Control test control: Yes Urine Drug Screen - Test Device Lot number: [id number] Expiration date: 09/03/20 - Control Is test valid?: Yes - Results Drug screen NEGATIVE: No Urine drug screen results: THC-Marijuana, RITO-Cocaine, FEN-Fentanyl, MTD- Methadone Inpatient Rehab Admission - Rehab Decision to Admit Inpatient rehab admission?: No
[2019-02-16] MEDS ORDERED: cloNIDine HCL 0.1 MG TABLET PO PRN (10:15)
[2019-02-16] MEDS ORDERED: BISMUTH SUBSALICYLATE 262 MG/15 ML BTL PO PRN (10:21)
[2019-02-16] MEDS ORDERED: MELATONIN 5 MG TABLETS PO PRN (10:21)
[2019-02-16] MEDS ORDERED: MAG HYDROX/AL HYDROX/SIMETH 30 ML UNIT-DOSE CUP PO PRN (10:21)
[2019-02-16] MEDS ORDERED: IBUPROFEN 400 MG TABLET (FP) PO PRN (10:21)
[2019-02-16] MEDS ORDERED: MAGNESIUM CITRATE 300 ML BOTTLE PO PRN (10:21)
[2019-02-16] MEDS ORDERED: hydrOXYzine PAMOATE 25 MG CAPSULE (FP) PO PRN (10:21)
[2019-02-16] MEDS ORDERED: ACETAMINOPHEN 325 MG TABLET (FP) PO PRN ×2 (10:21)
[2019-02-16] MEDS ORDERED: MENTHOL/PHENOL 1 EACH UD MM PRN (10:21)
[2019-02-16] MEDS ORDERED: MAGNESIUM HYDROX 2400MG/30ML ORAL SUSPENSION 30 ML CUP PO PRN (10:21)
[2019-02-16] MEDS ORDERED: METHADONE HCL 10 MG TABLET (FOR DETOX USE ONLY) PO ONE ×2 (10:45→23:00)
[2019-02-16] MEDS: SULFAMETHOXAZOLE/TRIMETHOPRIM 800MG/160MG D.S. TABLET PO SCH ×2 (11:51→22:35)
[2019-02-16] MEDS: NICOTINE 21 MG/24 HOURS TOPICAL PATCH TD SCH (11:52)
[2019-02-16] MEDS: diazePAM 5 MG TABLET PO SCH ×2 (13:40→22:34)
[2019-02-16 14:28] LABS: HEMATOCRIT 42.2 % (32.4-45.2); MCH 29.9 pg (25.7-33.7); MCHC 33.2 g/dl (32.0-36.0); MEAN CELL VOLUME 89.9 fl (80-96); MEAN PLT VOLUME 9.3 fl (7.5-11.1); PLATELET COUNT 586 K/MM3 (134-434); RBC 4.69 M/mm3 (3.60-5.2); RDW 15.3 % (11.6-15.6); WHITE BLOOD COUNT 9.1 K/mm3 (4.0-10.0)
[2019-02-16 14:33] LABS: EPI CELLS 4.7 /HPF (0-5/HPF); URINE APPEARANCE CLEAR; URINE BACTERIA 43.7 /hpf (NEGATIVE); URINE BILIRUBIN 1+ (NEGATIVE); URINE CASTS 34 /lpf (0-8); URINE COLOR DK YELLOW; URINE GLUCOSE (UA) NEGATIVE (NEGATIVE); URINE KETONE TRACE (NEGATIVE); URINE LEUK ESTERASE NEGATIVE (NEGATIVE); URINE NITRITE NEGATIVE (NEGATIVE); URINE PROTEIN 1+ (NEGATIVE); URINE RBC 6 /hpf (0-4); URINE WBC 6 /hpf (0-5)
[2019-02-16 14:38] LABS: BILIRUBIN,TOTAL 0.3 mg/dL (0.2-1); CALCIUM 9.8 mg/dL (8.5-10.1); CREATININE 1.1 mg/dL (0.55-1.3); POTASSIUM 4.8 mmol/L (3.5-5.1); TOT PROT 8.2 g/dl (6.4-8.2)
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
[2019-02-16] MEDS: RIVAROXABAN 15 MG TABLET PO SCH (17:29)
[2019-02-16] MEDS: diazePAM 5 MG TABLET PO PRN (17:31)
[2019-02-16] MEDS ORDERED: levETIRAcetam 250 MG TABLET (FP) PO ONE (21:26)
[2019-02-16] MEDS ORDERED: ONDANSETRON *ODT* 4 MG TABLET SL PRN (21:35)
[2019-02-16] MEDS: THIAMINE HCL 100 MG TABLET (FP) PO SCH (22:33)
[2019-02-16] MEDS: levETIRAcetam 500 MG TABLET (FP) PO SCH (22:35)
[2019-02-16] MEDS: QUEtiapine FUMARATE 100 MG TABLET (FP) PO SCH (22:35)
[2019-02-17] MEDS: diazePAM 5 MG TABLET PO SCH ×3 (06:00→22:51)
[2019-02-17] MEDS: NICOTINE POLACRILEX 2 MG GUM BUC PRN ×5 (06:05→22:53)
[2019-02-17] MEDS ORDERED: levETIRAcetam 250 MG TABLET (FP) PO ONE (09:54)
[2019-02-17] MEDS: ALBUTEROL SO4 8 GM HFA INHALER IH PRN ×2 (09:59→22:53)
[2019-02-17] MEDS ORDERED: METHADONE HCL 10 MG TABLET (FOR DETOX USE ONLY) PO ONE (10:00)
[2019-02-17] MEDS ORDERED: METHADONE HCL 5 MG TABLET (FOR DETOX USE ONLY) PO ONE (10:00)
[2019-02-17] MEDS: SULFAMETHOXAZOLE/TRIMETHOPRIM 800MG/160MG D.S. TABLET PO SCH ×2 (10:31→22:51)
[2019-02-17] MEDS: diazePAM 5 MG TABLET PO PRN ×2 (10:31→17:43)
[2019-02-17] MEDS: QUEtiapine FUMARATE 100 MG TABLET (FP) PO SCH ×2 (10:32→22:51)
[2019-02-17] MEDS: levETIRAcetam 500 MG TABLET (FP) PO SCH ×2 (10:32→22:51)
[2019-02-17] MEDS: NICOTINE 21 MG/24 HOURS TOPICAL PATCH TD SCH (10:32)
[2019-02-17] MEDS: PRENATAL VITAMINS W/ FOLIC ACID TABLET (FP) PO SCH (10:33)
--- NOTE | 2019-02-17 11:12 | PN ---
[facility] CIWA - CIWA Score Nausea/Vomitin-Mild Nausea/No Vomiting Muscle Tremors: 3 Anxiety: 2 Agitation: 2 Paroxysmal Sweats: 1-Minimal Palms Moist Orientation: 1-Uncertain about Date Tacttile Disturbances: 0-None Auditory Disturbances: 0-None Visual Disturbances: 0-None Headache: 1-Very Mild CIWA-Ar Total Score: 11 S COWS - Scale Resting Pulse: 1= [place] 81-100 Sweatin= Chills/Flushing Restless Observation: 1= Difficult to Sit Still Pupil Size: 0= Normal to Room Light Bone or Joint Aches: 1= Mild Discomfort Runny Nose/ Eye Tearin= Nasal Congestion GI Upset > 30mins: 2= Nausea/Diarrhea Tremor Observation of Outstretched Hands: 1= Tremor [place], Not Seen Yawning Observation: 1= 1-2x During Session Anxiety or Irritability: 1=Feels Anxious/Irritable Goose Flesh Skin: 0=Smooth Skin COWS Score: 10 [facility] Progress Note (SOAP) Subjective: tired resting on bed doing ok with valium and methadone detox regimen Objective: 02/17/19 11:19 Vital Signs Temperature 97.2 F L 02/17/19 09:51 Pulse Rate 96 H 02/17/19 09:51 Respiratory Rate 18 02/17/19 09:51 Blood Pressure 105/66 02/17/19 09:51 O2 Sat by Pulse Oximetry (%) Laboratory Last Values WBC 9.1 K/mm3 (4.0-10.0) 02/16/19 10:15 RBC 4.69 M/mm3 (3.60-5.2) 02/16/19 10:15 Hgb 14.0 GM/dL (10.7-15.3) 02/16/19 10:15 Hct 42.2 % (32.4-45.2) 02/16/19 10:15 MCV 89.9 fl (80-96) 02/16/19 10:15 MCH 29.9 pg (25.7-33.7) 02/16/19 10:15 MCHC 33.2 g/dl (32.0-36.0) 02/16/19 10:15 RDW 15.3 % (11.6-15.6) 02/16/19 10:15 Plt Count 586 K/MM3 (134-434) H 02/16/19 10:15 MPV 9.3 fl (7.5-11.1) 02/16/19 10:15 Sodium 137 mmol/L (136-145) 02/16/19 10:15 Potassium 4.8 mmol/L (3.5-5.1) 02/16/19 10:15 Chloride 102 mmol/L (98-107) 02/16/19 10:15 Carbon Dioxide 28 mmol/L (21-32) 02/16/19 10:15 Anion Gap 7 MMOL/L (8-16) L 02/16/19 10:15 BUN 16 mg/dL (7-18) 02/16/19 10:15 Creatinine 1.1 mg/dL (0.55-1.3) 02/16/19 10:15 Est GFR (CKD-EPI)AfAm 76.93 02/16/19 10:15 Est GFR (CKD-EPI)NonAf 66.38 02/16/19 10:15 Random Glucose 94 mg/dL (74-106) 02/16/19 10:15 Calcium 9.8 mg/dL (8.5-10.1) 02/16/19 10:15 Total Bilirubin 0.3 mg/dL (0.2-1) 02/16/19 10:15 AST 35 U/L (15-37) 02/16/19 10:15 ALT 41 U/L (13-61) 02/16/19 10:15 Alkaline Phosphatase 89 U/L (45-117) 02/16/19 10:15 Total Protein 8.2 g/dl (6.4-8.2) 02/16/19 10:15 Albumin 4.0 g/dl (3.4-5.0) 02/16/19 10:15 Urine Color Dk yellow 02/16/19 11:50 Urine Appearance Clear 02/16/19 11:50 Urine pH 5.0 (5.0-8.0) 02/16/19 11:50 Ur Specific [place] 1.039 (1.010-1.035) H 02/16/19 11:50 Urine Protein 1+ (NEGATIVE) H 02/16/19 11:50 Urine Glucose (UA) Negative (NEGATIVE) 02/16/19 11:50 Urine Ketones Trace (NEGATIVE) H 02/16/19 11:50 Urine Blood Negative (NEGATIVE) 02/16/19 11:50 Urine Nitrite Negative (NEGATIVE) 02/16/19 11:50 Urine Bilirubin 1+ (NEGATIVE) H 02/16/19 11:50 Urine Urobilinogen 1.0 mg/dL (0.2-1.0) 02/16/19 11:50 Ur Leukocyte Esterase Negative (NEGATIVE) 02/16/19 11:50 Urine WBC (Auto) 6 /hpf (0-5) 02/16/19 11:50 Urine RBC (Auto) 6 /hpf (0-4) 02/16/19 11:50 Urine Casts (Auto) 34 /lpf (0-8) 02/16/19 11:50 U Pathogenic Cast Auto Present /lpf (NEGATIVE) 02/16/19 11:50 U Epithel Cells (Auto) 4.7 /HPF (0-5/HPF) 02/16/19 11:50 Urine Bacteria (Auto) 43.7 /hpf (NEGATIVE) 02/16/19 11:50 POC Urine HCG, Qual Negative 02/16/19 10:40 RPR Titer Nonreactive (NONREACTIVE) 02/16/19 10:15 lab noted Assessment: 02/17/19 11:20 alcohol and opiate withdrawal sx Plan: continue detox
[2019-02-17] MEDS: RIVAROXABAN 15 MG TABLET PO SCH (17:38)
[2019-02-17] MEDS: METHOCARBAMOL 500 MG TABLET PO PRN (17:44)
[2019-02-17] MEDS ORDERED: METHADONE (DETOX) 10 MG, METHADONE (DETOX) 5 MG PO ONE (19:22)
[2019-02-17] MEDS ORDERED: METHADONE HCL 10 MG TABLET (FOR DETOX USE ONLY) ONE (19:51)
[2019-02-17] MEDS ORDERED: METHADONE HCL 5 MG TABLET (FOR DETOX USE ONLY) ONE (19:52)
--- NOTE | 2019-02-17 22:36 | PN ---
S Progress Note Note: Patient c/o feeling withdrawal symptoms and increased anxiety. States bad insomnia. States upset because not receiving Trazodone. Vital Signs 02/17/19 02/17/19 02/17/19 14:50 17:49 21:41 Temperature 98.4 F 98.1 F 98.0 F Pulse Rate 70 94 H 105 H Respiratory 18 16 19 Rate Blood Pressure 126/70 94/56 L 103/69 Laboratory Last Values WBC 9.1 K/mm3 (4.0-10.0) 02/16/19 10:15 RBC 4.69 M/mm3 (3.60-5.2) 02/16/19 10:15 Hgb 14.0 GM/dL (10.7-15.3) 02/16/19 10:15 Hct 42.2 % (32.4-45.2) 02/16/19 10:15 MCV 89.9 fl (80-96) 02/16/19 10:15 MCH 29.9 pg (25.7-33.7) 02/16/19 10:15 MCHC 33.2 g/dl (32.0-36.0) 02/16/19 10:15 RDW 15.3 % (11.6-15.6) 02/16/19 10:15 Plt Count 586 K/MM3 (134-434) H 02/16/19 10:15 MPV 9.3 fl (7.5-11.1) 02/16/19 10:15 Sodium 137 mmol/L (136-145) 02/16/19 10:15 Potassium 4.8 mmol/L (3.5-5.1) 02/16/19 10:15 Chloride 102 mmol/L (98-107) 02/16/19 10:15 Carbon Dioxide 28 mmol/L (21-32) 02/16/19 10:15 Anion Gap 7 MMOL/L (8-16) L 02/16/19 10:15 BUN 16 mg/dL (7-18) 02/16/19 10:15 Creatinine 1.1 mg/dL (0.55-1.3) 02/16/19 10:15 Est GFR (CKD-EPI)AfAm 76.93 02/16/19 10:15 Est GFR (CKD-EPI)NonAf 66.38 02/16/19 10:15 Random Glucose 94 mg/dL (74-106) 02/16/19 10:15 Calcium 9.8 mg/dL (8.5-10.1) 02/16/19 10:15 Total Bilirubin 0.3 mg/dL (0.2-1) 02/16/19 10:15 AST 35 U/L (15-37) 02/16/19 10:15 ALT 41 U/L (13-61) 02/16/19 10:15 Alkaline Phosphatase 89 U/L (45-117) 02/16/19 10:15 Total Protein 8.2 g/dl (6.4-8.2) 02/16/19 10:15 Albumin 4.0 g/dl (3.4-5.0) 02/16/19 10:15 Urine Color Dk yellow 02/16/19 11:50 Urine Appearance Clear 02/16/19 11:50 Urine pH 5.0 (5.0-8.0) 02/16/19 11:50 Ur Specific [place] 1.039 (1.010-1.035) H 02/16/19 11:50 Urine Protein 1+ (NEGATIVE) H 02/16/19 11:50 Urine Glucose (UA) Negative (NEGATIVE) 02/16/19 11:50 Urine Ketones Trace (NEGATIVE) H 02/16/19 11:50 Urine Blood Negative (NEGATIVE) 02/16/19 11:50 Urine Nitrite Negative (NEGATIVE) 02/16/19 11:50 Urine Bilirubin 1+ (NEGATIVE) H 02/16/19 11:50 Urine Urobilinogen 1.0 mg/dL (0.2-1.0) 02/16/19 11:50 Ur Leukocyte Esterase Negative (NEGATIVE) 02/16/19 11:50 Urine WBC (Auto) 6 /hpf (0-5) 02/16/19 11:50 Urine RBC (Auto) 6 /hpf (0-4) 02/16/19 11:50 Urine Casts (Auto) 34 /lpf (0-8) 02/16/19 11:50 U Pathogenic Cast Auto Present /lpf (NEGATIVE) 02/16/19 11:50 U Epithel Cells (Auto) 4.7 /HPF (0-5/HPF) 02/16/19 11:50 Urine Bacteria (Auto) 43.7 /hpf (NEGATIVE) 02/16/19 11:50 POC Urine HCG, Qual Negative 02/16/19 10:40 RPR Titer Nonreactive (NONREACTIVE) 02/16/19 10:15 Labs reviewed. Plan: Reviewed and adjusted methadone taper. Vistaril 75 mg HS for sleep x 1. Referral for Psych re-eval.
[2019-02-17] MEDS: THIAMINE HCL 100 MG TABLET (FP) PO SCH (22:50)
[2019-02-17] MEDS ORDERED: hydrOXYzine PAMOATE 25 MG CAPSULE (FP) PO ONE (23:00)
[2019-02-18] MEDS ORDERED: diazePAM 5 MG TABLET PO ONE (06:00)
[2019-02-18] MEDS: diazePAM 5 MG TABLET PO PRN ×2 (07:49→13:46)
--- NOTE | 2019-02-18 09:47 | PN ---
Psychiatric Progress Note Vital Signs: Vital Signs Period Temp Pulse Resp BP Sys/Turcios Pulse Ox Last 24 Hr 97.2 F-98.4 F 70-105 - 92-126/56-70 Date of Session: 02/18/19 Chief Complaint:: " I need my trazodone ". HPI: Hospital course is uneventful except for complaint of insomnia and patient' s request to resume trazodone 150 mg at bedtime. Medication was placed on hold on admision as a caution against oversedation. ROS: Unremarkable. Current Medications: Active Medications Generic Name Dose Route Start Last Admin Trade Name Freq PRN Reason Stop Dose Admin Acetaminophen 650 mg 02/16/19 10:21 Tylenol - PO Q6H PRN PAIN LEVEL 4 - 6 Acetaminophen 650 mg 02/16/19 10:21 Tylenol - PO Q6H PRN FEVER Al Hydroxide/Mg Hydroxide 30 ml 02/16/19 10:21 Mylanta Oral Suspension - PO Q6H PRN DYSPEPSIA Albuterol Sulfate 2 puff 02/16/19 10:24 02/17/19 22:53 Ventolin Hfa Inhaler - IH 2 puff Q4H PRN Administration SHORT OF BREATH/WHEEZING Bismuth Subsalicylate 30 ml 02/16/19 10:21 Pepto-Bismol Liquid - PO Q1H PRN DIARRHEA Clonidine 0.1 mg 02/16/19 10:15 Catapres - PO 02/18/19 23:55 Q6H PRN Withdrawal Symptoms Diazepam 10 mg 02/16/19 10:21 02/18/19 07:49 Valium - PO 02/19/19 10:20 10 mg Q4H PRN Administration WITHDRAWAL(CONT SUBST) Eucalyptus/Menthol/Phenol/Sorbitol 1 each 02/16/19 10:21 Cepastat Lozenge - MM 02/22/19 10:21 Q4H PRN SORE THROAT Hydroxyzine Pamoate 25 mg 02/16/19 10:21 02/16/19 13:40 Vistaril - PO 02/22/19 10:21 25 mg Q6H PRN Administration For Anxiety Levetiracetam 500 mg 02/16/19 22:00 02/17/19 22:51 Keppra - PO 500 mg BID SHANIA Administration Magnesium Citrate 300 ml 02/16/19 10:21 Citroma - PO Q48H PRN CONSTIPATION Magnesium Hydroxide 30 ml 02/16/19 10:21 Milk Of Magnesia - PO PRN PRN CONSTIPATION Melatonin 5 mg 02/16/19 10:21 Melatonin PO HS PRN INSOMNIA Methadone HCl 20 mg 02/18/19 10:00 Dolophine - PO 02/18/19 10:01 ONCE ONE Methadone HCl 10 mg 02/19/19 10:00 Dolophine - PO 02/19/19 10:01 ONCE ONE Methadone HCl 5 mg 02/20/19 06:00 Dolophine - PO 02/20/19 06:01 ONCE ONE Methocarbamol 500 mg 02/16/19 10:21 02/17/19 17:44 Robaxin - PO 02/22/19 10:21 500 mg Q6H PRN Administration MUSCLE SPASMS Nicotine 21 mg 02/16/19 10:30 02/17/19 10:32 Nicoderm Patch - TD 21 mg DAILY SHANIA Administration Nicotine Polacrilex 2 mg 02/16/19 10:21 02/17/19 22:53 Nicorette Gum - BUC 2 mg Q2H PRN Administration NICOTINE REPLACEMENT RX Ondansetron HCl 8 mg 02/16/19 21:35 Zofran Odt - SL Q8H PRN NAUSEA AND/OR VOMITING Multivit/Folic Acid/Iron 1 tab 02/17/19 10:00 02/17/19 10:33 Vitamins (Sjr) - PO 1 tab DAILY SHANIA Administration Quetiapine Fumarate 100 mg 02/16/19 22:00 02/17/19 22:51 Seroquel - PO 100 mg BID SHANIA Administration Quetiapine Fumarate 200 mg 02/18/19 22:00 Seroquel - PO HS SHANIA Rivaroxaban 15 mg 02/16/19 17:30 02/17/19 17:38 Xarelto PO 15 mg DAILY@1730 SHANIA Administration Thiamine HCl 100 mg 02/16/19 22:00 02/17/19 22:50 Vitamin B1 - PO 100 mg HS SHANIA Administration Trazodone HCl 100 mg 02/18/19 22:00 Desyrel - PO HS SHANIA Trimethoprim/Sulfamethoxazole 1 each 02/16/19 10:30 02/17/19 22:51 Bactrim Ds - PO 1 each BID SHANIA Administration Medication(s) Change(s): Hypotension is still present this morning. Will observe trend in the course of the day. If improvement, will resume trazodone at the dose of 100 mg po hs. Discussed with the patient. She is agreeable with that plan. Current Side Effect: No Lab tests ordered: No Lab tests reviewed: Yes Provider note:: Chart reviewed. Supervisor Of Way met with patient. Issue of insomnia : discussed in this follow-up session. Ms Reddy is doing much better. She looks rested, moves with a steady gait, socializes with peers and remains active on the unit. No evidence of discomfort. Adequate personal hygiene. Patient is alert and fully oriented. Eats well. Exhibits stable mental status. Verbalizes interest for transition to rehabilitation. Detoxification in progress. Benign hospital course. Total face to face time:: 25 Mental Status Exam - Mental Status Exam Alert and Oriented to: Time, Place, Person Cognitive Function: Good Patient Appearance: Well Groomed Mood: Hopeful, Euthymic Affect: Appropriate, Normal Range Patient Behavior: Appropriate, Cooperative Speech Pattern: Clear, Appropriate Voice Loudness: Normal Thought Process: Goal Oriented Thought Disorder: Not Present Hallucinations: Denies Suicidal Ideation: Denies Homicidal Ideation: Denies Insight/Judgement: Fair Sleep: Poorly (as per self-report) Appetite: Good Gait/Station: Normal Psychiatric Treatment Plan - Problem List (1) Alcohol dependence with uncomplicated withdrawal Comment: . (2) Opioid dependence with withdrawal Comment: . (3) Cannabis dependence Comment: . (4) Cocaine dependence Qualifiers: Substance use status: uncomplicated Qualified Code(s): F14.20 - Cocaine dependence, uncomplicated Comment: . (5) Nicotine dependence Qualifiers: Nicotine product type: cigarettes Substance use status: uncomplicated Qualified Code(s): F17.210 - Nicotine dependence, cigarettes, uncomplicated Comment: . (6) Substance induced mood disorder Comment: . (7) Bipolar disorder Qualifiers: Active/Remission status: remission status unspecified Qualified Code(s): F31.9 - Bipolar disorder, unspecified Comment: . (8) Insomnia Comment: .
[2019-02-18] MEDS ORDERED: METHADONE HCL 10 MG TABLET (FOR DETOX USE ONLY) PO ONE ×2 (10:00)
[2019-02-18] MEDS: QUEtiapine FUMARATE 100 MG TABLET (FP) PO SCH (10:37)
[2019-02-18] MEDS: levETIRAcetam 500 MG TABLET (FP) PO SCH (10:37)
[2019-02-18] MEDS: SULFAMETHOXAZOLE/TRIMETHOPRIM 800MG/160MG D.S. TABLET PO SCH (10:37)
[2019-02-18] MEDS: PRENATAL VITAMINS W/ FOLIC ACID TABLET (FP) PO SCH (10:37)
[2019-02-18] MEDS: NICOTINE 21 MG/24 HOURS TOPICAL PATCH TD SCH (10:37)
[2019-02-18] MEDS: NICOTINE POLACRILEX 2 MG GUM BUC PRN ×2 (10:43→17:37)
[2019-02-18] MEDS: METHOCARBAMOL 500 MG TABLET PO PRN (10:43)
--- NOTE | 2019-02-18 12:16 | PN ---
S CIWA - CIWA Score Nausea/Vomitin-Mild Nausea/No Vomiting Muscle Tremors: 1-None Visible, but [place] Anxiety: 1-Mildly Anxious Agitation: 1-Slight > Activity Paroxysmal Sweats: 1-Minimal Palms Moist Orientation: 0-Oriented Tacttile Disturbances: 0-None Auditory Disturbances: 0-None Visual Disturbances: 0-None Headache: 0-None Present CIWA-Ar Total Score: 5 [facility] COWS - Scale Resting Pulse: 0= [place] 80 or Below Sweatin= No chills or Flushing Restless Observation: 0= Sits Still Pupil Size: 0= Normal to Room Light Bone or Joint Aches: 1= Mild Discomfort Runny Nose/ Eye Tearin= Nasal Congestion GI Upset > 30mins: 1= Stomach Cramp Tremor Observation of Outstretched Hands: 1= Tremor [place], Not Seen Yawning Observation: 0= None Anxiety or Irritability: 1=Feels Anxious/Irritable Goose Flesh Skin: 0=Smooth Skin COWS Score: 5 S Progress Note (SOAP) Subjective: here for treatment of multisubstance use: heroin,alcohol,cocaine,marijuana. says doing well on detox protocols O: Vital Signs - 24 hr 02/17/19 02/17/19 02/17/19 14:50 17:49 21:41 Temperature 98.4 F 98.1 F 98.0 F Pulse Rate 70 94 H 105 H Respiratory 18 16 19 Rate Blood Pressure 126/70 94/56 L 103/69 02/18/19 02/18/19 02/18/19 00:30 06:38 09:55 Temperature 98 F 98.6 F Pulse Rate 89 77 Respiratory 16 16 20 Rate Blood Pressure 92/61 119/76 Laboratory Tests 02/16/19 02/16/19 02/16/19 10:15 10:15 10:15 WBC 9.1 RBC 4.69 Hgb 14.0 Hct 42.2 MCV 89.9 MCH 29.9 MCHC 33.2 RDW 15.3 Plt Count 586 H MPV 9.3 Sodium 137 Potassium 4.8 Chloride 102 Carbon Dioxide 28 Anion Gap 7 L BUN 16 Creatinine 1.1 Est GFR (CKD-EPI)AfAm 76.93 Est GFR (CKD-EPI)NonAf 66.38 Random Glucose 94 Calcium 9.8 Total Bilirubin 0.3 AST 35 ALT 41 Alkaline Phosphatase 89 Total Protein 8.2 Albumin 4.0 Urine Color Urine Appearance Urine pH Ur Specific [place] Urine Protein Urine Glucose (UA) Urine Ketones Urine Blood Urine Nitrite Urine Bilirubin Urine Urobilinogen Ur Leukocyte Esterase Urine WBC (Auto) Urine RBC (Auto) Urine Casts (Auto) U Pathogenic Cast Auto U Epithel Cells (Auto) Urine Bacteria (Auto) POC Urine HCG, Qual RPR Titer Nonreactive 02/16/19 02/16/19 10:40 11:50 WBC RBC Hgb Hct MCV MCH MCHC RDW Plt Count MPV Sodium Potassium Chloride Carbon Dioxide Anion Gap BUN Creatinine Est GFR (CKD-EPI)AfAm Est GFR (CKD-EPI)NonAf Random Glucose Calcium Total Bilirubin AST ALT Alkaline Phosphatase Total Protein Albumin Urine Color Dk yellow Urine Appearance Clear Urine pH 5.0 Ur Specific [place] 1.039 H Urine Protein 1+ H Urine Glucose (UA) Negative Urine Ketones Trace H Urine Blood Negative Urine Nitrite Negative Urine Bilirubin 1+ H Urine Urobilinogen 1.0 Ur Leukocyte Esterase Negative Urine WBC (Auto) 6 Urine RBC (Auto) 6 Urine Casts (Auto) 34 U Pathogenic Cast Auto Present U Epithel Cells (Auto) 4.7 Urine Bacteria (Auto) 43.7 POC Urine HCG, Qual Negative RPR Titer a/p: continue detox protocols, d/w pt [facility] treatment elvira methadone- pt will talk to counselor re this
--- NOTE | 2019-02-18 17:02 | PN ---
[facility] Progress Note Note: Pateint left AMA reports to person reason, did not wait
--- NOTE | 2019-02-18 17:27 | DS ---
[facility] Detox Discharge Summary Admission Date: 02/16/19 Discharge Date: 02/18/19 - History Present History: Alcohol Dependence, Opioid Dependence - Physical Exam Results Vital Signs: Vital Signs Temperature 98.0 F 02/18/19 13:15 Pulse Rate 99 H 02/18/19 13:15 Respiratory Rate 18 02/18/19 13:15 Blood Pressure 100/58 L 02/18/19 13:15 O2 Sat by Pulse Oximetry (%) - Treatment Hospital Course: Discharged Condition Good - Medication Discharge Medications: Ambulatory Orders Quetiapine Fumarate [Seroquel -] 300 mg PO BID #60 tablet 09/16/17 levETIRAcetam [Keppra -] 500 mg PO BID #90 tablet 09/18/17 Albuterol Sulfate Inhaler - [Ventolin HFA Inhaler -] 2 puff IH Q4H PRN #1 inhaler 09/19/17 Rivaroxaban [Xarelto] 15 mg PO DAILY 01/03/19 traZODone HCL [Desyrel -] 100 mg PO HS 01/03/19 - Diagnosis (1) Alcohol dependence with uncomplicated withdrawal Current Visit: Yes Status: Acute (2) Opioid dependence with withdrawal Current Visit: Yes Status: Acute (3) Cannabis dependence Current Visit: Yes Status: Chronic (4) Cocaine dependence Current Visit: Yes Status: Chronic Qualifiers: Substance use status: uncomplicated Qualified Code(s): F14.20 - Cocaine dependence, uncomplicated (5) Bronchial asthma Current Visit: Yes Status: Chronic (6) GERD (gastroesophageal reflux disease) Current Visit: Yes Status: Chronic Qualifiers: Esophagitis presence: without esophagitis Qualified Code(s): K21.9 - Gastro -esophageal reflux disease without esophagitis - AMA Did Patient Leave Against Medical Advice: Yes
[2019-02-18] MEDS: RIVAROXABAN 15 MG TABLET PO SCH (17:36)
[2019-02-18 17:59] VITALS: BP 105/62; PULSE 106; TEMP 97.7
[2019-02-18] MEDS ORDERED: traZODone HCL 100 MG TABLET (FP) PO SCH (22:00)
[2019-02-18] MEDS ORDERED: QUEtiapine FUMARATE 200 MG TABLET PO SCH (22:00)
[2019-02-19] MEDS ORDERED: METHADONE HCL 5 MG TABLET (FOR DETOX USE ONLY) PO ONE (06:00)
[2019-02-19] MEDS ORDERED: METHADONE HCL 10 MG TABLET (FOR DETOX USE ONLY) PO ONE ×2 (10:00)
[2019-02-20] MEDS ORDERED: METHADONE HCL 5 MG TABLET (FOR DETOX USE ONLY) PO SCH (06:00)
[2019-02-20] MEDS ORDERED: METHADONE HCL 5 MG TABLET (FOR DETOX USE ONLY) PO ONE ×2 (06:00)
== END 2019-02-18 17:47 | disposition left against medical advice (07) | DRG 770 ==
LOC: YASAS 08:41 → Y3N 10:35
PROVIDERS: ADMIT Surgery; ATTEND Surgery
PROC: HZ2ZZZZ Detoxification Services for Substance Abuse Treatment (ICD-10-PCS; principal; 2019-02-16)
DX: F11.23 Opioid dependence with withdrawal (principal); F10.230 Alcohol dependence with withdrawal, uncomplicated; F14.20 Cocaine dependence, uncomplicated; F12.20 Cannabis dependence, uncomplicated; F17.210 Nicotine dependence, cigarettes, uncomplicated; F19.24 Other psychoactive substance dependence with psychoactive substance-induced mood disorder; F31.9 Bipolar disorder, unspecified; J45.909 Unspecified asthma, uncomplicated; K21.9 Gastro-esophageal reflux disease without esophagitis; G40.909 Epilepsy, unspecified, not intractable, without status epilepticus; R63.4 Abnormal weight loss; L03.119 Cellulitis of unspecified part of limb; Z86.718 Personal history of other venous thrombosis and embolism
CPT/HCPCS: 36415; 80053; 81003; 81025; 85027; 86593

== ENCOUNTER 2021-04-05 12:20 | Inpatient (IN) | payer BC ==
[2021-04-05 13:31] VITALS: BMI 23.2
[2021-04-05] MEDS ORDERED: MENTHOL/PHENOL 1 EACH UD MM PRN (15:55)
[2021-04-05] MEDS ORDERED: METHOCARBAMOL 500 MG TABLET PO PRN (15:55)
[2021-04-05] MEDS ORDERED: MAG HYDROX/AL HYDROX/SIMETH 30 ML UNIT-DOSE CUP PO PRN (15:55)
[2021-04-05] MEDS ORDERED: MAGNESIUM HYDROX 2400MG/30ML ORAL SUSPENSION 30 ML CUP PO PRN (15:55)
[2021-04-05] MEDS ORDERED: ACETAMINOPHEN 325 MG TABLET (FP) PO PRN ×2 (15:55)
[2021-04-05] MEDS ORDERED: BISMUTH SUBSALICYLATE 524 MG/30 ML PO PRN (15:55)
[2021-04-05] MEDS ORDERED: NICOTINE POLACRILEX 2 MG GUM BUC PRN (15:55)
[2021-04-05] MEDS ORDERED: MAGNESIUM CITRATE 300 ML BOTTLE PO PRN (15:55)
[2021-04-05] MEDS ORDERED: METHADONE HCL 10 MG TABLET (FOR DETOX USE ONLY) PO ONE (15:55)
[2021-04-05] MEDS ORDERED: cloNIDine HCL 0.1 MG TABLET PO PRN (15:55)
[2021-04-05] MEDS ORDERED: IBUPROFEN 400 MG TABLET (FP) PO PRN (15:55)
[2021-04-05] MEDS ORDERED: diazePAM 5 MG TABLET PO ONE (16:56)
[2021-04-05] MEDS ORDERED: ALBUTEROL SO4 HFA INHALER IH PRN (16:56)
[2021-04-05] MEDS: NICOTINE 21 MG/24 HOURS TOPICAL PATCH TD SCH (20:09)
[2021-04-05] MEDS: diazePAM 5 MG TABLET PO SCH ×2 (20:11→22:30)
[2021-04-05] MEDS: hydrOXYzine PAMOATE 25 MG CAPSULE (FP) PO SCH ×2 (20:12→22:30)
[2021-04-05] MEDS ORDERED: MELATONIN 5 MG TABLETS PO SCH (22:00)
[2021-04-05] MEDS: levETIRAcetam 500 MG TABLET (FP) PO SCH (22:30)
[2021-04-05] MEDS: THIAMINE HCL 100 MG TABLET (FP) PO SCH (22:30)
[2021-04-05] MEDS: ASPIRIN 325 MG TABLET PO SCH (22:30)
[2021-04-06] MEDS: diazePAM 5 MG TABLET PO SCH ×4 (05:49→22:17)
[2021-04-06] MEDS: hydrOXYzine PAMOATE 25 MG CAPSULE (FP) PO SCH ×5 (05:49→22:20)
[2021-04-06] MEDS ORDERED: METHADONE HCL 5 MG TABLET (FOR DETOX USE ONLY) ONE (08:59)
[2021-04-06] MEDS ORDERED: METHADONE HCL 10 MG TABLET (FOR DETOX USE ONLY) ONE (08:59)
[2021-04-06] MEDS: levETIRAcetam 500 MG TABLET (FP) PO SCH ×2 (09:09→22:17)
[2021-04-06] MEDS: NICOTINE 21 MG/24 HOURS TOPICAL PATCH TD SCH (09:09)
[2021-04-06] MEDS: PRENATAL VITAMINS W/ FOLIC ACID TABLET (FP) PO SCH (09:10)
[2021-04-06] MEDS: ASPIRIN 325 MG TABLET PO SCH (09:10)
[2021-04-06] MEDS: ONDANSETRON *ODT* 4 MG TABLET SL PRN ×2 (09:11→17:14)
[2021-04-06 10:00] LABS: HEMATOCRIT 43.2 % (32.4-45.2); HEMOGLOBIN 14.1 GM/dL (10.7-15.3); MCH 31.2 pg (25.7-33.7); MCHC 32.8 g/dl (32.0-36.0); MEAN CELL VOLUME 95.2 fl (80-96); MEAN PLT VOLUME 9.6 fl (7.5-11.1); PLATELET COUNT 388 10^3/uL (134-434); RBC 4.53 M/mm3 (3.60-5.2); RDW 13.8 % (11.6-15.6)
[2021-04-06] MEDS ORDERED: METHADONE (DETOX) 20 MG, METHADONE (DETOX) 5 MG PO ONE (10:00)
[2021-04-06 10:12] LABS: CALCIUM 8.8 mg/dL (8.5-10.1)
[2021-04-06 10:13] LABS: ALBUMIN 3.6 g/dl (3.4-5.0); BLOOD UREA NITROGEN 12.6 mg/dL (7-18)
[2021-04-06 10:16] LABS: CREATININE 0.7 mg/dL (0.55-1.3)
[2021-04-06 10:18] LABS: BILIRUBIN,TOTAL 0.3 mg/dL (0.2-1); TOT PROT 6.6 g/dl (6.4-8.2)
[2021-04-06] MEDS: diazePAM 5 MG TABLET PO PRN (17:15)
[2021-04-06] MEDS ORDERED: MELATONIN 5 MG TABLETS PO SCH (22:00)
[2021-04-06] MEDS: THIAMINE HCL 100 MG TABLET (FP) PO SCH (22:18)
[2021-04-07] MEDS ORDERED: diazePAM 5 MG TABLET PO SCH (06:00)
[2021-04-07] MEDS: diazePAM 5 MG TABLET PO SCH ×2 (06:09→13:43)
[2021-04-07] MEDS: hydrOXYzine PAMOATE 25 MG CAPSULE (FP) PO SCH ×4 (06:09→17:49)
[2021-04-07] MEDS ORDERED: METHADONE HCL 10 MG TABLET (FOR DETOX USE ONLY) PO ONE (10:00)
[2021-04-07] MEDS: levETIRAcetam 500 MG TABLET (FP) PO SCH (10:14)
[2021-04-07] MEDS: ASPIRIN 325 MG TABLET PO SCH (10:14)
[2021-04-07] MEDS: NICOTINE 21 MG/24 HOURS TOPICAL PATCH TD SCH (10:14)
[2021-04-07] MEDS: PRENATAL VITAMINS W/ FOLIC ACID TABLET (FP) PO SCH (10:14)
[2021-04-07] MEDS: diazePAM 5 MG TABLET PO PRN ×2 (10:15→17:48)
[2021-04-07 17:08] VITALS: BP 111/70; PULSE 80; TEMP 97.1
[2021-04-08] MEDS ORDERED: diazePAM 5 MG TABLET PO SCH (06:00)
[2021-04-08] MEDS ORDERED: METHADONE (DETOX) 10 MG, METHADONE (DETOX) 5 MG PO ONE (10:00)
[2021-04-09] MEDS ORDERED: diazePAM 5 MG TABLET PO ONE (06:00)
[2021-04-09] MEDS ORDERED: METHADONE HCL 10 MG TABLET (FOR DETOX USE ONLY) PO ONE (10:00)
[2021-04-10] MEDS ORDERED: METHADONE HCL 5 MG TABLET (FOR DETOX USE ONLY) PO ONE (06:00)
== END 2021-04-07 18:57 | disposition left against medical advice (07) | DRG 770 ==
LOC: YASAS 12:20 → Y6N 16:40
PROVIDERS: ADMIT Allergy & Immunology; ATTEND Allergy & Immunology
PROC: HZ2ZZZZ Detoxification Services for Substance Abuse Treatment (ICD-10-PCS; principal; 2021-04-05)
DX: F11.23 Opioid dependence with withdrawal (principal); F10.230 Alcohol dependence with withdrawal, uncomplicated; F13.230 Sedative, hypnotic or anxiolytic dependence with withdrawal, uncomplicated; F14.20 Cocaine dependence, uncomplicated; F12.20 Cannabis dependence, uncomplicated; F17.210 Nicotine dependence, cigarettes, uncomplicated; F43.10 Post-traumatic stress disorder, unspecified; F41.1 Generalized anxiety disorder; F30.9 Manic episode, unspecified; F19.24 Other psychoactive substance dependence with psychoactive substance-induced mood disorder; F19.282 Other psychoactive substance dependence with psychoactive substance-induced sleep disorder; J45.909 Unspecified asthma, uncomplicated; G40.909 Epilepsy, unspecified, not intractable, without status epilepticus; G47.00 Insomnia, unspecified; K21.9 Gastro-esophageal reflux disease without esophagitis; B18.2 Chronic viral hepatitis C; Z86.718 Personal history of other venous thrombosis and embolism; Z88.0 Allergy status to penicillin; Z88.8 Allergy status to other drugs, medicaments and biological substances
CPT/HCPCS: 36415; 80053; 81025; 85027; 86780; C9803; Q0162; U0003; U0005